=== PATIENT | female | born 1950 | race Caucasian/White ===

== ENCOUNTER → 2016-11-27 | Outpatient (REF) | payer MEDICARE, OTHER ==
[~2016-11-27] MED LIST: /ADVA50050; ACET65TA; ADV250INH INH; ALBU17IN INH; ALBU83IN; ALBU83IN INH; ASPI81TA21 PO; ASPI81TA83; AZIT200S30 PO; BIOT50004 PO; CALCTAB68 PO; DILT1TAB12 PO; DILT240C77 PO; LEVA500T; LEVA750T7 PO; LEVO750T13 PO; LIPI10TA; LIPI10TA PO; NYST50SS SS; PANT40TA2 PO; PRED10PA PO; PRED10TA PO; PRED20TA; PRIL40CA; PROV90AE; SALI0.6523; VITA200016 PO; VITMTA PO; XARE20TA PO; [UNRECOGNIZED DRUG - CODE] PO; [UNRECOGNIZED DRUG - OTHER]
== END ==
LOC: M LAB REF 12:32
PROVIDERS: ATTEND Family Medicine
DX: L57.0 Actinic keratosis (principal)

== ENCOUNTER → 2017-03-22 | Outpatient (CLI) | payer MEDICARE, OTHER | LOC: M WHC 07:44 | DX: Z12.31 Encounter for screening mammogram for malignant neoplasm of breast (principal); Z13.820 Encounter for screening for osteoporosis; M81.0 Age-related osteoporosis without current pathological fracture; R92.8 Other abnormal and inconclusive findings on diagnostic imaging of breast | CPT/HCPCS: 77067 ==

== ENCOUNTER → 2017-09-09 | Outpatient (CLI) | payer MEDICARE, OTHER | LOC: M CLY 08:54 | DX: J98.4 Other disorders of lung (principal) | CPT/HCPCS: 71046 ==

== ENCOUNTER → 2018-12-02 | Outpatient (CLI) | payer MEDICARE, OTHER ==
[~2018-12-02] MED LIST changes: -/ADVA50050; +ADVA1AER2; +DILT1CAP5 PO; -DILT240C77 PO; -PANT40TA2 PO; +PANT40TA3 PO; +PRED-351 PO; -PRED10TA PO; -SALI0.6523; +SALI0.6528
--- NOTE | 2018-12-02 08:25 | REPMRS ---
Patient History The patient states she has not had a clinical breast exam in over a year. No known family history of cancer. Benign excisional biopsy of the right breast, 1989. Digital Woman Screen Mammo: December 02, 2018 - Exam #: [id number] Bilateral CC and MLO view(s) were taken. Technologist: Zeenat Becerra, Technologist Prior study comparison: March 22, 2017, digital woman screen mammo performed at [facility]. October 27, 2015, digital woman screen mammo performed at [facility]. March 10, 2013, digital woman screen mammo performed at [facility]. FINDINGS: There are scattered fibroglandular densities. There has been no change in the appearance of the mammogram from the prior studies. There is a mild amount of scattered fibroglandular density which is fairly symmetric. There is no interval development of dominant mass, architectural distortion, or grouped microcalcification suggestive of malignancy. 3-D tomosynthesis shows no additional findings. Assessment: BI-RADS/ACR category 1 mammogram. Negative Mammogram. Recommendation Routine screening mammogram of both breasts in 1 year (for women over age 40). This patient's Lifetime Breast Cancer Risk is estimated at 4.3 %. This mammogram was interpreted with the aid of an FDA-approved computer-aided dectection system. Electronically Signed By: Jose Cobos MD 12/02/18 0824
== END ==
LOC: M WHC 06:49
PROVIDERS: ATTEND Family Medicine
DX: Z12.31 Encounter for screening mammogram for malignant neoplasm of breast (principal)

== ENCOUNTER → 2019-01-06 | Outpatient (CLI) | payer MEDICARE, OTHER ==
--- NOTE | 2019-01-06 12:09 | REP ---
Two-view chest: 01/06/2019. Indication: Dyspnea. Cough. Comparison: 09/09/2017. Findings: The lungs are clear. There is no pleural effusion or pneumothorax. The cardiac silhouette is unremarkable. Hyperinflated lungs are redemonstrated with leveling of the diaphragms consistent with the history of COPD. Impression: No acute cardiopulmonary process. Electronically Signed by Andrea Eastman DO 01/06/2019 12:01 P
== END ==
LOC: M CLY 11:27
PROVIDERS: ATTEND Internal Medicine Pulmonary Disease
DX: J44.9 Chronic obstructive pulmonary disease, unspecified (principal)

== ENCOUNTER → 2019-04-01 | Outpatient (CLI) | payer MEDICARE, OTHER ==
--- NOTE | 2019-04-01 14:30 | REP ---
PA and lateral chest: Comparison is 01/06/2019. The lung thompson are clear. Lung thompson are hyperinflated, unchanged. The cardiac size is normal. The jessi, mediastinum, and skeletal structures are unremarkable. Impression: Hyperinflation, otherwise, negative PA and lateral chest. There is no interval change. Electronically Signed by Bhaskar Strong MD 04/01/2019 02:22 P
== END ==
LOC: M CLY 13:57
PROVIDERS: ATTEND Internal Medicine Pulmonary Disease
DX: J44.9 Chronic obstructive pulmonary disease, unspecified (principal)

== ENCOUNTER → 2020-05-14 | Outpatient (CLI) | payer MEDICARE, OTHER ==
[~2020-05-14] MED LIST changes: +D31000TA2 PO; +INCR1INH INH; +PANT40TA29 PO; -PANT40TA3 PO; +PROAAER10 INH; +VITA100T59 PO
== END ==
LOC: M LABSMTC 08:20
PROVIDERS: ATTEND Anesthesiology
DX: Z01.818 Encounter for other preprocedural examination (principal); Z11.52 Encounter for screening for COVID-19

== ENCOUNTER 2020-05-19 07:37 | Day surgery (SDC) | payer MEDICARE, OTHER ==
[~2020-05-19] VITALS: Ht 170.2 cm; Wt 61.2 kg
[~2020-05-19 07:37] MED LIST changes: +LIDOCAINE 2% 100MG/5ML SDV (FOR ANES.) As Ordered ONE; +NS 1,000 ML IV ONE; +propofoL 200 MG/20 ML VIAL As Ordered ONE
[2020-05-19] MEDS ORDERED: propofoL 200 MG/20 ML VIAL As Ordered ONE (08:51)
--- NOTE | 2020-05-19 09:11 | ROOR ---
Patient Name: Juana Law Procedure Date: 05/19/2020 8:18 AM Date of : 1950 Age: 69 Room: [facility] Gender: Female Note Status: Finalized Procedure: Colonoscopy Indications: Screening for colorectal malignant neoplasm Providers: Eric Guadarrama Jr, MD Referring MD: David Quijano MD Requesting Provider: Medicines: Propofol per Anesthesia Complications: No immediate complications. Procedure: Pre-Anesthesia Assessment: - Prior to the procedure, a History and Physical was performed, and patient medications and allergies were reviewed. The patient is competent. The risks and benefits of the procedure and the sedation options and risks were discussed with the patient. All questions were answered and informed consent was obtained. Patient identification and proposed procedure were verified by the physician and the nurse in the pre-procedure area and in the procedure room. Mental Status Examination: alert and oriented. Airway Examination: normal oropharyngeal airway and neck mobility. Respiratory Examination: clear to auscultation. CV Examination: normal. ASA Grade Assessment: II - A patient with mild systemic disease. After reviewing the risks and benefits, the patient was deemed in satisfactory condition to undergo the procedure. The anesthesia plan was to use moderate sedation / analgesia (conscious sedation). Immediately prior to administration of medications, the patient was re-assessed for adequacy to receive sedatives. The heart rate, respiratory rate, oxygen saturations, blood pressure, adequacy of pulmonary ventilation, and response to care were monitored throughout the procedure. The physical status of the patient was re-assessed after the procedure. The Colonoscope was introduced through the anus and advanced to the cecum, identified by appendiceal orifice and ileocecal valve. The colonoscopy was performed without difficulty. The patient tolerated the procedure well. The quality of the bowel preparation was adequate. Findings: The rectum, recto-sigmoid colon, descending colon, transverse colon and hepatic flexure appeared normal. Many small and large-mouthed diverticula were found in the sigmoid colon and descending colon. A medium-sized polypoid lesion was found at the ileocecal valve. The lesion was semi-sessile. No bleeding was present. Biopsies were taken with a cold forceps for histology. Area was tattooed with an injection of 1 mL of Spot (carbon black). Impression: - The rectum, recto-sigmoid colon, descending colon, transverse colon and hepatic flexure are normal. - Diverticulosis in the sigmoid colon and in the descending colon. - Rule out malignancy, polypoid lesion at the ileocecal valve. Biopsied. Tattooed. Recommendation: - Discharge patient to home (ambulatory). - Return to my office in 1 week. Procedure Code(s): --- Professional --- 02694, Colonoscopy, flexible; with directed submucosal injection(s), any substance 53945, Colonoscopy, flexible; with biopsy, single or multiple Diagnosis Code(s): --- Professional --- Z12.11, Encounter for screening for malignant neoplasm of colon D49.0, Neoplasm of unspecified behavior of digestive system K57.30, Diverticulosis of large intestine without perforation or abscess without bleeding CPT copyright 2019 [employer]. All rights reserved. The codes documented in this report are preliminary and upon plugger man review may be revised to meet current compliance requirements. Eric Guadarrama MD Eric Guadarrama Jr, MD 05/19/2020 9:10:37 AM Electronically signed by Eric Guadarrama Jr, MD Number of Addenda: 0 Note Initiated On: 05/19/2020 8:18 AM Estimated Blood Loss: Estimated blood loss: none.
[2020-05-19 09:30] VITALS: BP 166/74
== END 2020-05-19 09:32 | disposition home or self-care (01) ==
LOC: M OPP 07:37
PROVIDERS: ATTEND Surgery
DX: Z12.11 Encounter for screening for malignant neoplasm of colon (principal); D12.0 Benign neoplasm of cecum; K57.30 Diverticulosis of large intestine without perforation or abscess without bleeding; Z79.899 Other long term (current) drug therapy; Z88.0 Allergy status to penicillin; Z88.8 Allergy status to other drugs, medicaments and biological substances

== ENCOUNTER 2020-06-28 10:45 | Inpatient (IN) | payer MEDICARE, OTHER ==
[~2020-06-28] VITALS: Ht 170.2 cm; Wt 63.9 kg
[~2020-06-28 10:45] MED LIST changes: -LIDOCAINE 2% 100MG/5ML SDV (FOR ANES.) As Ordered ONE; -NS 1,000 ML IV ONE; -propofoL 200 MG/20 ML VIAL As Ordered ONE
--- NOTE | 2020-07-11 12:57 | HPE ---
HISTORY AND PHYSICAL DATE OF ADMISSION: 07/12/2020 CHIEF COMPLAINT: Unresectable colon polyp. BRIEF HISTORY OF PRESENT ILLNESS: The patient is a 69-year-old female who presented for screening colonoscopy in April and presents with a sessile polyp near the ileocecal valve. This was an adenomatous polyp on biopsy. She has not had any GI complaints. No nausea. No vomiting. No diarrhea. No constipation issues. No blood per rectum. No family or personal history of colon polyps, colon cancer, ulcerative colitis or Crohn's disease. She presents now for resection of this polyp. PAST MEDICAL HISTORY: History of COPD, history of sleep apnea, history of skin cancer, history of atrial fibrillation, history of hypercholesterolemia, history of pulmonary emphysema, chronic rhinitis, bronchitis, sleep apnea. PHYSICAL EXAMINATION: GENERAL: This is a 69-year-old female who looks her stated age. HEENT: Unremarkable. NECK: Supple without adenopathy. LUNGS: A few crackles at the bases and diminished breath sounds. HEART: Regular with multiple irregular beats. ABDOMEN: Soft, nondistended and nontender. No guarding. No rebound. No peritoneal signs are appreciated. IMPRESSION AND PLAN: Patient has a right colon cancer/at the ileocecal valve. This was marked with carbon spot tattooing. Plan is for a laparoscopic right colectomy/hemicolectomy. The risks as well as benefits have been discussed with the patient at length, those including but not infection, bleeding, damage to surrounding structures as well as need for ostomy as well as anastomotic complications. Patient would like to proceed with operative intervention understanding that she will need a mechanical as well as antibiotic bowel prep preoperatively, receive IV antibiotics preoperatively, have TEDs sequentials fully placed intraoperatively and plan on hospitalization as an inpatient postoperatively and this will be typically at 2-3 hospital day admission, possibly longer given her COPD issues.
[2020-07-12] VITALS (9 sets, daily range): BP systolic 121–132; BP diastolic 58–67
[2020-07-12] MEDS ORDERED: LR 1,000 ML IV ONE (06:00)
[2020-07-12] MEDS ORDERED: BUPIVACAINE/EPIN 0.25% 30 ML VIAL As Ordered ONE (07:09)
[2020-07-12] MEDS ORDERED: GLUCAGON INJ 1MG VIAL As Ordered ONE (07:10)
[2020-07-12] MEDS ORDERED: BUPIVACAINE LIPOSOME/PF 1.3% 20ML VIAL (13.3MG/ML)(EXPAREL)(C9290 PER1MG) As Ordered ONE ×2 (07:10→08:39)
[2020-07-12] MEDS ORDERED: ROCURONIUM BROMIDE 50 MG/5 ML VIAL As Ordered ONE (07:17)
[2020-07-12] MEDS ORDERED: dexameTHASONE 4 MG/ML 1ML VIAL (J1100 PER 1MG) As Ordered ONE (07:17)
[2020-07-12] MEDS ORDERED: ACETAMINOPHEN 1000MG 100ML IV BTL (OFIRMEV) (J0131 PER 10MG) As Ordered ONE (07:17)
[2020-07-12] MEDS ORDERED: LIDOCAINE 2% 100MG/5ML SDV (FOR ANES.) As Ordered ONE (07:17)
[2020-07-12] MEDS ORDERED: ONDANSETRON 4MG/2ML VIAL As Ordered ONE (07:17)
[2020-07-12] MEDS ORDERED: MIDAZOLAM INJ 2MG/2ML VIAL (J2250 PER 1MG) As Ordered ONE (07:17)
[2020-07-12] MEDS ORDERED: propofoL 200 MG/20 ML VIAL As Ordered ONE (07:17)
[2020-07-12] MEDS ORDERED: NEOM500T PO (07:18)
[2020-07-12] MEDS ORDERED: METR-135 PO (07:18)
[2020-07-12] MEDS ORDERED: fentaNYL 100 MCG/2 ML INJECTION (J3010) As Ordered ONE (07:21)
[2020-07-12] MEDS ORDERED: AZITHROMYCIN INJ 500 MG, VIAL MATE ADAPTER 1 EACH in NS 250 ML IV ONE ×2 (07:45→07:48)
[2020-07-12] MEDS ORDERED: NS IV ONE (07:46)
[2020-07-12] MEDS ORDERED: AZITHROMYCIN IV ONE (07:46)
[2020-07-12] MEDS ORDERED: PHENYLephrine 500MCG 5ML (100MCG/ML) SYRINGE As Ordered ONE ×2 (08:05→08:30)
[2020-07-12] MEDS ORDERED: ePHEDrine SULFATE 25 MG/5 ML(5MG/ML) SYRINGE As Ordered ONE ×2 (08:30→08:50)
[2020-07-12] MEDS ORDERED: BUPIVACAINE HCL 0.25% 30ML VIAL As Ordered ONE (08:38)
[2020-07-12] MEDS ORDERED: PHENYLEPHRINE 10MG/ML 1ML VIAL (J2370 PER 1) As Ordered ONE (08:52)
[2020-07-12] MEDS ORDERED: ONDANSETRON 4MG/2ML VIAL IV PRN ×2 (09:45→10:25)
[2020-07-12] MEDS ORDERED: IPRATROPIUM 0.5MG/ALBUTEROL 2.5MG INH SOL UD 3ML (DUONEB) NEB PRN (09:45)
[2020-07-12] MEDS ORDERED: MORPHINE 2 MG/ML 1ML VIAL (J2270) IV PRN (09:45)
[2020-07-12] MEDS ORDERED: MORPHINE 4 MG/ML 1ML VIAL/SYRINGE (J2270) IV PRN (09:45)
[2020-07-12] MEDS ORDERED: oxyCODONE 5MG TAB PO PRN (10:25)
[2020-07-12] MEDS ORDERED: LR 1,000 ML IV SCH (10:25)
[2020-07-12] MEDS ORDERED: KETOROLAC 30 MG/ML 1ML VIAL IV PRN (10:25)
[2020-07-12] MEDS ORDERED: fentaNYL 100 MCG/2 ML INJECTION (J3010) IV PRN (10:25)
[2020-07-12] MEDS: D5W/LR 1,000 ML IV SCH ×2 (12:01→19:34)
[2020-07-12] MEDS: ATORVASTATIN 10 MG TAB PO SCH (12:03)
[2020-07-12] MEDS: KETOROLAC 30 MG/ML 1ML VIAL IV SCH ×2 (18:14→23:20)
[2020-07-12] MEDS: ADVAIR HFA 115/21MCG INHALER INH SCH (19:14)
[2020-07-12] MEDS: IPRATROPIUM 0.5MG/ALBUTEROL 2.5MG INH SOL UD 3ML (DUONEB) NEB SCH (19:16)
[2020-07-12] MEDS: ALVIMOPAN 12 MG CAPSULE (ENTEREG) PO SCH (20:18)
[2020-07-13] VITALS (9 sets, daily range): BP systolic 101–137; BP diastolic 49–64; O2SAT 90–97
[2020-07-13] MEDS: IPRATROPIUM 0.5MG/ALBUTEROL 2.5MG INH SOL UD 3ML (DUONEB) NEB SCH ×4 (01:04→19:47)
[2020-07-13] MEDS: D5W/LR 1,000 ML IV SCH ×3 (03:28→20:41)
[2020-07-13] MEDS: KETOROLAC 30 MG/ML 1ML VIAL IV SCH ×4 (05:16→23:17)
[2020-07-13 06:03] LABS: HEMATOCRIT 38.4 % (36.0-47.0); HEMOGLOBIN 11.8 g/dl (12.0-15.5); MEAN CORPUSCULAR HEMOGLOBIN 29.8 pg (27.0-33.0); MEAN CORPUSCULAR HGB CONC 30.7 g/dl (32.0-36.5); PLATELET COUNT, AUTOMATED 209 10^3/uL (150-450); RED BLOOD COUNT 3.96 10^6/uL (4.00-5.40); WHITE BLOOD COUNT 12.5 10^3/uL (4.0-10.0)
--- NOTE | 2020-07-13 06:14 | RO ---
OPERATIVE NOTE DATE OF OPERATION: 07/12/2020 PREOPERATIVE DIAGNOSIS: Colon polyp/right colon. POSTOPERATIVE DIAGNOSIS: Colon polyp/right colon PROCEDURE: Laparoscopic right colectomy. SURGEON: Eric Guadarrama MD DIRECTOR OF SPORTS MEDICINE: Katt Batista (provided the retraction exposure, assistance with the anastomosis and abdominal wall closure. ESTIMATED BLOOD LOSS: Minimal. FLUIDS: Crystalloid. ANESTHESIA: General endotracheal anesthesia. DISPOSITION: The patient was taken to the recovery room, awake, alert and hemodynamically stable. BRIEF OPERATIVE SUMMARY: The patient was taken to the operating room and was given general anesthesia. After adequate anesthesia and preoperative antibiotics were given, the patient was prepped and draped in the usual sterile fashion. Next, a supraumbilical incision was made with skin knife. Blunt dissection was carried down to fascia. A Veress needle was placed into the abdominal cavity, insufflated to 15 mm of pressure. Dilating 10 mm trocar was placed; and under direct visualization, 5 mm suprapubic, 5 mm left lower quadrant and epigastric 5 mm trocars were placed. Once this was performed, the patient was placed with the left side down, Trendelenburg position, then the white line of Toldt was taken down off the right side of the colon. The patient did have an appendectomy incision, did have some adhesions of the cecum and it was angling the cecum in such a manner that may have contributed to difficulty in removal of the right colon polyp. In any case, the white line of Toldt was taken down and the colon was mobilized off Gerota's fascia laterally and down towards the ileum/small bowel, mesentery was mobilized off the right lateral wall. There are some adhesions down in the right lower quadrant, but nothing significant or severe and dissection continued up and around the hepatic flexure to the transverse colon. Once the transverse colon was mobilized and the hepatic flexure was mobilized off the duodenum/C-loop, the continuation of the dissection continued on the right colon all the way to the cecum and the ileocecal valve area. Once this was identified and mobilized adequately, such that the cecum was able to touch the pubis, the cecum was grasped and brought out through a midline incision. A [id number] anastomosis was created; and with CHRISTA 75 staplers, the mesentery was taken with Wenden 60 vascular loads. The abdomen was irrigated, was clean and dry and the midline then was closed with running #1 Vicryl. Armstrong were used to approximate the skin. Local anesthetic was injected and a dry sterile dressing applied. The patient was awakened, extubated and brought to the recovery room, awake, alert and hemodynamically stable. Sponge and needle counts correct x2.
[2020-07-13 06:31] LABS: BLOOD UREA NITROGEN 5 MG/DL (7-18); CALCIUM LEVEL 8.9 MG/DL (8.8-10.2); CARBON DIOXIDE LEVEL 31 MEQ/L (21-32); CHLORIDE LEVEL 110 MEQ/L (98-107); CREATININE FOR GFR 0.72 MG/DL (0.55-1.30); GLOMERULAR FILTRATION RATE > 60.0 (>39); GLUCOSE, FASTING 149 MG/DL (70-100); POTASSIUM SERUM 4.8 MEQ/L (3.5-5.1); SODIUM LEVEL 143 MEQ/L (136-145)
[2020-07-13] MEDS: ADVAIR HFA 115/21MCG INHALER INH SCH ×2 (07:34→19:47)
[2020-07-13] MEDS ORDERED: AZITHROMYCIN INJ 500 MG, VIAL MATE ADAPTER 1 EACH in NS 250 ML IV ONE (08:00)
[2020-07-13] MEDS: ALVIMOPAN 12 MG CAPSULE (ENTEREG) PO SCH ×2 (09:36→23:16)
--- NOTE | 2020-07-13 11:28 | IPNPDOC ---
Text Note Date of Service The patient was seen on 07/13/20. NOTE Gen. surgery. Dr. Guadarrama The patient is a 69-year-old female status post Laparoscopic right colectomy as per Dr. Guadarrama 07/12/20. The patient is sitting up in bed this morning and states she is feeling good. She denies any abdominal pain. Denies nausea or vomiting. Reports a small amount of flatus this morning Afebrile. VSS Gen. Sitting up in bed, NAD Lungs are clear to auscultation S1 and S2 regular rate and rhythm Abdomen is soft, nondistended, only minimal amount of tenderness around surgical sites. Incisions with dressings intact. No edema. WBC 12.5, hemoglobin 11.8, platelets 209 Assessment/plan Status post right colectomy as per Dr. Guadarrama 07/12/20. Pain has been controlled. Report small amount of flatus this morning. Plan to try clear liquids. IVF 125cc/hr. DC García. Encourage out of bed and ambulate in arteaga. monitor VS,Jazminee, I+O VS, Lemuelbone, I+O Laboratory Tests 07/13/20 05:51 Vital Signs Date Time Temp Pulse Resp B/P (MAP) Pulse Ox O2 Delivery O2 Flow Rate FiO2 07/13/20 10:00 98.5 60 20 120/57 (78) 93 Nasal Cannula 2.0 I&O- Last 24 Hours up to 6 AM 07/13/20 06:00 Intake Total 3300 ml Output Total 2175 ml Balance 1125 ml Cheli Castro July 13, 2020 11:28
[2020-07-14] MEDS: IPRATROPIUM 0.5MG/ALBUTEROL 2.5MG INH SOL UD 3ML (DUONEB) NEB SCH ×4 (01:43→19:28)
[2020-07-14 02:00] VITALS: BP 127/59
[2020-07-14] MEDS: D5W/LR 1,000 ML IV SCH ×2 (04:53→08:31)
[2020-07-14] MEDS: KETOROLAC 30 MG/ML 1ML VIAL IV SCH ×2 (05:00→11:06)
[2020-07-14 06:00] VITALS: BP 143/70
[2020-07-14 06:18] LABS: HEMATOCRIT 36.1 % (36.0-47.0); HEMOGLOBIN 10.8 g/dl (12.0-15.5); MEAN CORPUSCULAR HEMOGLOBIN 29.6 pg (27.0-33.0); MEAN CORPUSCULAR HGB CONC 29.9 g/dl (32.0-36.5); MEAN CORPUSCULAR VOLUME 98.9 fl (80.0-96.0); PLATELET COUNT, AUTOMATED 187 10^3/uL (150-450); RED BLOOD COUNT 3.65 10^6/uL (4.00-5.40); WHITE BLOOD COUNT 12.6 10^3/uL (4.0-10.0)
[2020-07-14 06:43] LABS: BLOOD UREA NITROGEN 5 MG/DL (7-18); CALCIUM LEVEL 8.4 MG/DL (8.8-10.2); CARBON DIOXIDE LEVEL 31 MEQ/L (21-32); CHLORIDE LEVEL 112 MEQ/L (98-107); CREATININE FOR GFR 0.57 MG/DL (0.55-1.30); GLOMERULAR FILTRATION RATE > 60.0 (>39); GLUCOSE, FASTING 100 MG/DL (70-100); POTASSIUM SERUM 4.6 MEQ/L (3.5-5.1); SODIUM LEVEL 146 MEQ/L (136-145)
[2020-07-14] MEDS: ADVAIR HFA 115/21MCG INHALER INH SCH ×2 (07:22→19:29)
[2020-07-14] MEDS: ALVIMOPAN 12 MG CAPSULE (ENTEREG) PO SCH (08:24)
[2020-07-14] MEDS: ATORVASTATIN 10 MG TAB PO SCH (08:25)
[2020-07-14 10:00] VITALS: BP 137/64
--- NOTE | 2020-07-14 11:15 | IPNPDOC ---
Text Note Date of Service The patient was seen on 07/14/20. NOTE Gen. surgery. Dr. Guadarrama The patient is a 69-year-old female status post Laparoscopic right colectomy as per Dr. Guadarrama 07/12/20. The patient is sitting up in bed this morning and states pain is controlled. She denies any abdominal pain. Denies nausea or vomiting. Reports flatus. States she has had several bowel movements. At 4:40 AM and 6 AM she had juanita colored stool, At 8 AM black-colored stool. No further bowel movements according to the patient. No bright red blood. Afebrile. VSS Gen. Sitting up in bed, NAD Lungs are clear to auscultation S1 and S2 regular rate and rhythm Abdomen is soft, nondistended, only minimal amount of tenderness around surgical sites. Incisions with dressings intact. No edema. WBC 12.6, hemoglobin 10.8, platelets 187 I/O 2640/1900 positive 740 Assessment/plan Status post right colectomy as per Dr. Guadarrama 07/12/20. Pain has been controlled. The patient is tolerating clear liquids. Discontinue IV fluids. Discussed with Dr. Guadarrama that the patient did have juanita stools early this morning, last bowel movement at 8 AM was black in color. Possibly some oozing from anastomosis suture line. The patient is on Xarelto as outpatient for history of A. fib. Continue to monitor. Hemoglobin this morning 10.8. Encourage out of bed and ambulate in arteaga. monitor History of PAF. Rate is controlled and regular. Cardizem 120 mg by mouth 3 times a day. Xarelto as outpatient. Currently on hold. VS,Fishbone, I+O VS, Fishbone, I+O Laboratory Tests 07/14/20 06:02 Vital Signs Date Time Temp Pulse Resp B/P (MAP) Pulse Ox O2 Delivery O2 Flow Rate FiO2 07/14/20 10:00 97.7 79 20 137/64 (88) 95 Nasal Cannula 2.0 I&O- Last 24 Hours up to 6 AM 07/14/20 06:00 Intake Total 2640 ml Output Total 2050 ml Balance 590 ml Cheli Castro July 14, 2020 11:15
[2020-07-14 14:00] VITALS: BP 142/65
[2020-07-14 18:00] VITALS: BP 140/68
[2020-07-14 20:30] VITALS: BP 120/64
[2020-07-15] MEDS: IPRATROPIUM 0.5MG/ALBUTEROL 2.5MG INH SOL UD 3ML (DUONEB) NEB SCH ×3 (01:00→13:06)
[2020-07-15 06:40] VITALS: BP 128/66
[2020-07-15] MEDS: ADVAIR HFA 115/21MCG INHALER INH SCH (07:33)
[2020-07-15 07:44] LABS: HEMATOCRIT 40.1 % (36.0-47.0); HEMOGLOBIN 12.3 g/dl (12.0-15.5); MEAN CORPUSCULAR HEMOGLOBIN 29.9 pg (27.0-33.0); MEAN CORPUSCULAR HGB CONC 30.7 g/dl (32.0-36.5); MEAN CORPUSCULAR VOLUME 97.6 fl (80.0-96.0); PLATELET COUNT, AUTOMATED 216 10^3/uL (150-450); RED BLOOD COUNT 4.11 10^6/uL (4.00-5.40); WHITE BLOOD COUNT 12.1 10^3/uL (4.0-10.0)
[2020-07-15 08:04] LABS: BLOOD UREA NITROGEN 7 MG/DL (7-18); CARBON DIOXIDE LEVEL 33 MEQ/L (21-32); CHLORIDE LEVEL 105 MEQ/L (98-107); CREATININE FOR GFR 0.68 MG/DL (0.55-1.30); GLOMERULAR FILTRATION RATE > 60.0 (>39); GLUCOSE, FASTING 80 MG/DL (70-100); POTASSIUM SERUM 3.7 MEQ/L (3.5-5.1); SODIUM LEVEL 143 MEQ/L (136-145)
[2020-07-15 09:02] VITALS: BP 143/67
--- NOTE | 2020-07-15 10:57 | DS.PDOC ---
Discharge Summary General Date of Admission July 12, 2020 at 05:59 Date of Discharge 07/15/20 Discharge Summary Gen. surgery. Dr. Guadarrama PROCEDURES PERFORMED DURING STAY: Laparoscopic right colectomy as per Dr. Guadarrama 07/12/20. ADMITTING DIAGNOSES: Right colon cancer/at the ileocecal valve previously marked with carbon spot tattooing with plan for laparoscopic right colectomy. PAF Dyslipidemia Essential tremor COPD, patient states she uses oxygen as needed at home DISCHARGE DIAGNOSES: Right colon cancer/at the ileocecal valve previously marked with carbon spot tattooing S/P laparoscopic right colectomy. PAF Dyslipidemia Essential tremor COPD, patient states she uses oxygen as needed at home HISTORY OF PRESENT ILLNESS: The patient is a 69-year-old female who had a screening colonoscopy in April with cecal polyp removed with pathology tubovillous adenoma. The area was tattooed and plan was to proceed with laparoscopic right colectomy. HOSPITAL COURSE: The patient is status post laparoscopic right colectomy 07/12/[address] Guadarrama. Postoperatively the patient recovered well. Pain was well controlled. All incisions remained clean and dry. By 07/13/20 the patient was reporting a small amount of flatus and she was advanced to clear liquids. By 07/14/20 the patient was tolerating clear liquids. IV fluids were discontinued. The patient had reported juanita stools early in the morning which transitioned to black/bilious bowel movements. The patient had no further juanita stools and had no bright red blood. This was felt to be related to possibly some oozing at the anastomosis suture line. The patient is noted to be on Xarelto as an outpatient. Hemoglobin remained stable. The patient was advanced to regular diet which she tolerated well. On the morning of 07/15/20 the patient was up out of bed, she was continuing to have bowel movements, pain was well controlled, incisions were all clean and dry. She was felt stable for discharge. She was noted to still still be on 2 L nasal cannula however the patient does have a history of COPD and uses oxygen as needed at home. She reports her respiratory status is at her baseline. She has been afebrile. White blood cell count is12.1 this morning, this has been consistently 12.1-12.6 since admission. Currently, there are no signs of infection. Respiratory status is at the patient's baseline. She reports no urinary complaints. No abdominal pain. She has been afebrile. The patient is not felt to require antibiotics at this t elissa but we have discussed with her to call back to the office with any changes in symptoms, drainage from incisions or development of fevers or chills. The patient verbalizes understanding and agreement. Plan is to arrange for the patient to follow-up next Saturday or in the office for staple removal and in [address] Guadarrama. Pathology 05/12/20 indicated tubovillous adenoma 2.5 cm, negative for invasive carcinoma. DISCHARGE MEDICATIONS: Please see below. ALLERGIES: Please see below. PHYSICAL EXAMINATION ON DISCHARGE: Afebrile. VSS Gen. Sitting up in bed, NAD Lungs are clear to auscultation S1 and S2 regular rate and rhythm Abdomen is soft, nondistended, only minimal amount of tenderness around surgical sites. Incisions clean and dry with makayla intact, no erythema, drainage, signs of infection. No edema. LABORATORY DATA: Please see below. DISCHARGE PLAN: Discharge home DISCHARGE INSTRUCTIONS: ACTIVITY: As tolerated. No lifting greater than 20 pounds for 2 weeks. DIET: Regular Continue to keep incisions clean and dry. Okay to shower, no baths. Follow-up next Saturday or in the office for possible staple removal. Follow-up in [address] Guadarrama. The patient may resume Xarelto at discharge. Call the office with any changes or questions, increasing pain, drainage from incisions, or development of fevers or chills. DISCHARGE CONDITION: Stable. TIME SPENT ON DISCHARGE: Greater than 30 minutes. Vital Signs/I&Os Vital Signs Date Time Temp Pulse Resp B/P (MAP) Pulse Ox O2 Delivery O2 Flow Rate FiO2 07/15/20 09:02 96 143/67 07/15/20 06:40 96.8 18 93 Nasal Cannula 2.0 I&O- Last 24 Hours up to 6 AM 07/15/20 06:00 Intake Total 2540 ml Output Total 3300 ml Balance -760 ml Laboratory Data Labs 24H Laboratory Tests 2 07/15/20 07:03: Nucleated Red Blood Cells % (auto) 0.0, Anion Gap 5L, Glomerular Filtration Rate > 60.0, Calcium Level 9.0 CBC/BMP Laboratory Tests 07/15/20 07:03 Discharge Medications Scheduled Albuterol Sulfate (Proair Hfa) 8.5 Gm Hfa.aer.ad, 2 PUFF INH PRN, (Reported) Ascorbic Acid (Vitamin C) 100 Mg Tablet, 120 MG PO DAILY, (Reported) Atorvastatin Calcium (Lipitor) 10 Mg Tab, 10 MG PO Q2D, (Reported) Cholecalciferol (Vitamin D3) (Vitamin D3) 1,000 Unit Tablet, 2,000 UNITS PO DAILY, (Reported) Diltiazem HCl (Diltiazem HCl) 60 Mg Tab, 120 MG PO TID, (Reported) Multivitamins (Thera M Plus Tablet) 1 Tab Tab, 1 TAB PO DAILY, (Reported) Rivaroxaban (Xarelto) 20 Mg Tab, 20 MG PO DAILY, (Reported) Salmeterol/Fluticasone (Advair 250-50 Diskus) 14 Puff/Inhaler Aerp, 1 PUFF INH BID, (Reported) Umeclidinium [place] (Incruse Ellipta) 62.5 Mcg Blst.w.dev, 1 PUFF INH DAILY, (Reported) Scheduled PRN Albuterol Sulf (Albuterol Sulfate) 2.5 Mg/3 Ml Nebu, 2.5 MG INH QIDP PRN for RESPIRATORY DISTRESS, (Reported) Allergies Coded Allergies: Penicillins (Verified Allergy, Intermediate, hives, 05/09/20) cefaclor (Verified Allergy, Intermediate, hives, 05/09/20) sulfamethoxazole (Verified Allergy, Intermediate, hives, 05/09/20) trimethoprim (Verified Allergy, Intermediate, hives, 05/09/20) levofloxacin (Verified Adverse Reaction, Intermediate, tendon pains, 05/18/20) Cheli Castro July 15, 2020 10:57
[2020-07-15 14:00] VITALS: BP 120/60
== END 2020-07-15 14:56 | disposition home or self-care (01) | DRG 331 ==
LOC: M OR 07-12 05:59 → M MSPAV 07-12 11:29
PROVIDERS: ADMIT Surgery; ATTEND Surgery
PROC: 0DTF4ZZ Resection of Right Large Intestine, Percutaneous Endoscopic Approach (ICD-10-PCS; principal; 2020-07-12 07:30)
DX: D12.0 Benign neoplasm of cecum (principal); J44.9 Chronic obstructive pulmonary disease, unspecified; G47.30 Sleep apnea, unspecified; E78.00 Pure hypercholesterolemia, unspecified; I48.0 Paroxysmal atrial fibrillation; Z79.01 Long term (current) use of anticoagulants; Z79.899 Other long term (current) drug therapy; Z88.0 Allergy status to penicillin; Z88.1 Allergy status to other antibiotic agents; Z88.2 Allergy status to sulfonamides; Z88.8 Allergy status to other drugs, medicaments and biological substances

== ENCOUNTER → 2020-06-29 | Outpatient (REF) | payer MEDICARE, OTHER ==
[2020-06-29 17:18] LABS: INR 1.2; PROTHROMBIN TIME 15.5 SECONDS (12.5-14.3)
[2020-06-29 17:19] LABS: PARTIAL THROMBOPLASTIN TIME 29.9 SECONDS (24.2-38.5)
== END ==
LOC: M LAB REF 16:13
PROVIDERS: ATTEND Family Medicine
DX: Z01.818 Encounter for other preprocedural examination (principal); K63.5 Polyp of colon; Z79.01 Long term (current) use of anticoagulants

== ENCOUNTER → 2020-07-07 | Outpatient (CLI) | payer MEDICARE, OTHER | LOC: M LABSMTC 09:37 | PROVIDERS: ATTEND Anesthesiology | DX: Z01.818 Encounter for other preprocedural examination (principal); Z20.822 Contact with and (suspected) exposure to COVID-19 ==

== ENCOUNTER 2020-07-17 04:59 | Inpatient (IN) | payer MEDICARE, OTHER ==
[~2020-07-17] VITALS: Ht 170.2 cm; Wt 59.1 kg
[~2020-07-17 04:59] MED LIST changes: +METR-135 PO; +NEOM500T PO
[2020-07-17] MEDS ORDERED: AZTREONAM 1 GM in D5W MINI-BAG PLUS 50 ML IV STA (05:20)
[2020-07-17] MEDS ORDERED: NS IV ONE (05:20)
[2020-07-17] MEDS ORDERED: VANCOMYCIN HCL 1,000 MG in IV FLUID PLACE HOLDER 1 EA IV ONE (05:20)
[2020-07-17] MEDS ORDERED: metroNIDAZOLE 500 MG in IV 1 EA IV ONE (05:20)
[2020-07-17] MEDS ORDERED: methylPREDNISolone 125MG 2ML VIAL IV ONE (05:30)
[2020-07-17 05:56] LABS: BASO % 0.1 % (0.0-1.0); EOS # 0.1 10^3/uL (0.0-0.5); EOS % 0.4 % (0.0-3.0); HEMATOCRIT 39.5 % (36.0-47.0); HEMOGLOBIN 12.3 g/dl (12.0-15.5); LYMPH # 0.9 10^3/uL (1.5-5.0); LYMPH % 5.7 % (24.0-44.0); MEAN CORPUSCULAR HEMOGLOBIN 29.6 pg (27.0-33.0); MEAN CORPUSCULAR HGB CONC 31.1 g/dl (32.0-36.5); MEAN CORPUSCULAR VOLUME 95.2 fl (80.0-96.0); NEUTROPHILS # 14.2 10^3/uL (1.5-8.5); NEUTROPHILS % 87.4 % (36.0-66.0); PLATELET COUNT, AUTOMATED 242 10^3/uL (150-450); RED BLOOD COUNT 4.15 10^6/uL (4.00-5.40); WHITE BLOOD COUNT 16.3 10^3/uL (4.0-10.0)
[2020-07-17 06:24] LABS: ALBUMIN 3.1 GM/DL (3.2-5.2); ALT/SGPT 55 U/L (12-78); AMYLASE 31 U/L (25-115); BILIRUBIN,DIRECT 0.2 MG/DL (0.0-0.2); BILIRUBIN,TOTAL 0.7 MG/DL (0.2-1.0); BLOOD UREA NITROGEN 15 MG/DL (7-18); CALCIUM LEVEL 8.1 MG/DL (8.8-10.2); CARBON DIOXIDE LEVEL 27 MEQ/L (21-32); CHLORIDE LEVEL 106 MEQ/L (98-107); CK-MB VALUE MASS < 1.0 NG/ML (<3.6); CPK CREATINE PHOSPHOKINASE 54 U/L (26-192); CREATININE FOR GFR 0.75 MG/DL (0.55-1.30); GLOMERULAR FILTRATION RATE > 60.0 (>39); GLUCOSE, FASTING 119 MG/DL (70-100); MB/CK RELATIVE INDEX 1.85 (< OR =4); POTASSIUM SERUM 3.7 MEQ/L (3.5-5.1); SODIUM LEVEL 140 MEQ/L (136-145); TOTAL PROTEIN 6.5 GM/DL (6.4-8.2); TROPONIN I < 0.02 NG/ML (< 0.10)
[2020-07-17 06:27] LABS: RSV AMPLIFICATION NEGATIVE (NEGATIVE)
[2020-07-17 06:46] LABS: INR 1.65; PARTIAL THROMBOPLASTIN TIME 27.5 SECONDS (24.2-38.5); PROTHROMBIN TIME 19.9 SECONDS (12.5-14.3)
[2020-07-17] MEDS ORDERED: VANCOMYCIN HCL 1,000 MG, VIAL MATE ADAPTER 1 EACH in NS 250 ML IV ONE (07:00)
[2020-07-17] MEDS ORDERED: ISOVUE-370 76% 100ML VIAL As Ordered ONE (07:05)
--- NOTE | 2020-07-17 07:54 | ECGEPIP ---
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
[2020-07-17] MEDS: ADVAIR HFA 115/21MCG INHALER INH SCH ×2 (08:00→19:47)
--- NOTE | 2020-07-17 08:27 | REP ---
INDICATION: rectal bleeding. COMPARISON: Comparison is made with chest CT images from 22 March 2015.. TECHNIQUE: Helical scanning is acquired following the intravenous injection of 100 mL of Isovue 370. 3 mm axial images re-formatted. Coronal and sagittal MPR images are generated and reviewed. Max coronal MIP images are provided. FINDINGS: Digital preliminary woodworking machinist radiographs demonstrate surgical clips scattered in the abdomen with multiple large and small bowel air-fluid levels seen. The lung bases demonstrated a fairly large area of consolidation in the right lower lobe consistent with pneumonia. There is no evidence of pleural effusion. There is mild diffuse fatty infiltration of the liver and there are geographic areas of fat sparing in the right lobe of the liver anteriorly and laterally. No hepatic mass lesion is seen. The gallbladder is unremarkable. There is a stable cyst in the superolateral margin of the spleen measuring 1.9 cm. No adrenal abnormality is observed. No abnormality is noted in the pancreas. Kidneys enhance symmetrically and are morphologically intact. There is moderate left colonic diverticulosis without CT evidence of diverticulitis. There is an anastomotic suture line in the right colon suggesting previous right colectomy. Small and large bowel loops are otherwise unremarkable. No obstructive lesion is seen. Uterus is surgically absent. No adnexal abnormality is observed. No retroperitoneal mass or adenopathy is seen. There is good opacification of the arterial tree. Vascular calcification is observed in a normal caliber aorta. There is calcific plaquing at the origin of both the superior mesenteric and celiac axis but no high-grade stenosis is suspected. Singular nonstenotic renal arteries are observed bilaterally. The inferior mesenteric artery is patent. The common iliac arteries are heavily calcified but patent. The external and internal iliac arteries are widely patent. No bony destructive lesion is seen. IMPRESSION: 1. Left colonic diverticulosis without CT evidence of diverticulitis. No colonic mass lesion is seen. Post right colon resection. 2. Moderate multifocal vascular calcification. No high-grade stenosis or visceral artery occlusion seen. 3. Fatty infiltration of the liver with areas of fat sparing in the right lobe. 4. Right lower lobe consolidation consistent with pneumonia. <Electronically signed by Jose Cobos > 07/17/20 0936
--- NOTE | 2020-07-17 08:55 | REPVR ---
PROCEDURE INFORMATION: Exam: XR Chest Exam date and time: 07/17/2020 6:11 AM Age: 69 years old Clinical indication: Shortness of breath; Additional info: Sepsis/shock TECHNIQUE: Imaging protocol: XR of the chest. Views: 1 view. COMPARISON: CR CHEST 2 VIEW 09/09/2017 9:01 AM FINDINGS: Lungs: The lungs are again hyperinflated. There is minor streaky bibasilar atelectasis. No new consolidation. Pleural spaces: Unremarkable. No pleural effusion. No pneumothorax. Heart/Mediastinum: The cardiomediastinal silhouette is fairly stable in appearance, allowing for differences in technique. Bones/joints: Unremarkable. IMPRESSION: Hyperinflation, as on 09/09/17, without new disease. Electronically signed by: Beny Mckinley On 07/17/2020 08:55:42 AM
--- NOTE | 2020-07-17 08:59 | REPVR ---
PROCEDURE INFORMATION: Exam: XR Abdomen Exam date and time: 07/17/2020 6:11 AM Age: 69 years old Clinical indication: Other: Examine gas pattern TECHNIQUE: Imaging protocol: XR of the abdomen. Views: 2 Views. Cross-table lateral and supine views. COMPARISON: No relevant prior studies available. FINDINGS: Tubes, catheters and devices: Surgical clips and sutures overlie the right lower quadrant. Gastrointestinal tract: The small bowel is not significantly air-distended. Air and stool are present within large bowel. Intraperitoneal space: No free air is evident. Bones/joints: Degenerative changes involve the spine. Soft tissues: There are multiple skin makayla. IMPRESSION: Nonspecific bowel gas pattern. Electronically signed by: Beny Mckinley On 07/17/2020 08:58:35 AM
[2020-07-17] MEDS ORDERED: ACETAMINOPHEN TAB 650MG DOSE (2X325MG) PO PRN (10:05)
[2020-07-17] MEDS ORDERED: VANCOMYCIN HCL 1,000 MG, VIAL MATE ADAPTER 1 EACH in NS 250 ML IV SCH (10:05)
[2020-07-17] MEDS ORDERED: ALBUTEROL 90 MCG/ACT 8GM HFA INHALER INH PRN (10:05)
[2020-07-17] MEDS ORDERED: ALBUTEROL SULFATE 2.5 MG/0.5 ML INH NEB SOLN INH PRN (10:05)
[2020-07-17 13:00] VITALS: BP 128/69
[2020-07-17] MEDS: VITAMIN D 1,000 INTERNATIONAL UNITS TABLET PO SCH (13:52)
[2020-07-17] MEDS: MULTIVITAMINS/MINERALS THERAP 1 TAB PO SCH (13:52)
[2020-07-17] MEDS: ATORVASTATIN 10 MG TAB PO SCH (13:52)
[2020-07-17] MEDS: metroNIDAZOLE 500 MG in IV 1 EA IV SCH ×2 (13:53→18:47)
[2020-07-17 14:00] VITALS: BP 111/73
[2020-07-17] MEDS: TIOTROPIUM INHALER/CAPSULE (SPIRIVA) INH SCH (14:01)
--- NOTE | 2020-07-17 15:13 | HPEPDOC ---
[facility] Medical History & Physical Date of Admission July 17, 2020 Date of Service: July 17, 2020 Attending Physician: NEREYDA CESPEDES MD History and Physical CHIEF COMPLAINT: productive cough and fever, and then had BRBPR in the ED HISTORY OF PRESENT ILLNESS: 69 yo W with COPD on chronic oxygen therapy at [facility], who recently underwent a lap R colectomy for a benign sessile polyp in the ileocecal valve found of routine colonoscopy, and surgery was on 07/[address] Guadarrama and was dischar ge home without any complications, who now returned to the ED with a worsening productive cough and yamel fever to 102.4 at home. Of note, she has a history of Afib on xarelto that was held since 07/08 and was recently restarted yesterday evening per surgeon's direction. Since hospital discharge, she reports that she had been doing well, stool had slowly turned brown and was formed without abdominal pain and was tolerating a regular diet. She reports first noting the fever yesterday but the cough had been slight and nonproductive at discharge and then slowly got worse while she was home. She otherwise did not have chills, chest pain, nausea, emesis, abdominal pain, palpitations or sick contacts. In the ED, she was hemodynamically stable and afebrile and had noted bloody bowel movement which she reports to be the first time she has ever had one, i/s/o restarting xarelto last night. Investigations were notable for leukocytosis to 16.3, CRP of 1.9, hgb 12.3, platelets 242, na 140, K 3.7, Cr 0.7, CXR that was unremarkable, AXR that showed a non-specific bowel gas pattern and a CTA abdomen that showed no abdominal pathology but noted a RLL consolidation c/w RLL PNA. Given the BRBPR shortly after restarting the xarelto with unconcerning post-op abdominal anatomy, I will hold xarelto, place her on a clear liquid diet and monitor H/H. Surgery was made aware of the LGIB by the ED. I am now admitting her for RLL PNA. PAST MEDICAL HISTORY: 1. Chronic obstructive pulmonary disease (COPD). 2. Hypercholesterolemia. 3. Essential tremors. 4. Atrial fibrillation. 5. Sleep apnea. 6. Chronic hypoxemic respiratory failure on baseline up to 2L NC (sometimes does not use it) PAST SURGICAL HISTORY: 1. Hysterectomy. 2. Appendectomy. 3. Left breast lumpectomy (benign). 4. Recent R colectomy on 07/12 for benign sessile polyp in ileocecal valve, surgery done by Dr. Guadarrama SOCIAL HISTORY: Quit smoking in 1991. She drinks one 5 ounce glass of wine per day. She denies drug use. She lives at home with her . She reports no recent travel and she is a retired banker as of 2004. Was recently hospitalized at [facility] for lap R colectomy FAMILY HISTORY: Mother had a history of hypertension, hypercholesterolemia, arthritis, and dementia. Father at the age of 62 from lung cancer. One brother has alpha-1 antitrypsin deficiency and as a complication from lung transplant medications. Another brother has atrial fibrillation. ALLERGIES: Please see below. REVIEW OF SYSTEMS: 10 point ROS was completed, and it was negative except the pertinent positives noted in the HPI HOME MEDICATIONS: Please see below. PHYSICAL EXAMINATION: VITAL SIGNS: Please see below GENERAL APPEARANCE: NAD, AOx3 HEENT: NCAT, MMM, EOMI, PERRLA CARDIOVASCULAR: In sinus today, RRR, no m/r/g LUNGS: RLL wet crackles, otherwise clear throughout without wheezing or rhonchi ABDOMEN: Normoactive sounds, healed lap sites, soft, NTND EXTREMITIES: WWP, no LE edema NEUROLOGICAL: CN 2-12 intact, moving all extremities with no noted focal deficits, essential tremors noted per baseline according to the patient PSYCHIATRIC: AOx3 LABORATORY DATA and IMAGING: Discussed above in HPI. See below for full details MICROBIOLOGY: Please see below. ASSESSMENT: 69 yo W with COPD on chronic oxygen therapy at 2L NC, who recently underwent a lap R colectomy for a benign sessile polyp in the ileocecal valve found of routine colonoscopy, and surgery was on 07/[address] Guadarrama and was discharged home without any complications, who now returned to the ED with a worsening productive cough and yamel fever to 102.4 and found to have a leukocytosis to 16.3 and a RLL consolidation c/w RLL PNA on imaging and admitted for RLL PNA. She also had BRBPR shortly after restarting the xarelto with unconcerning post-op abdominal anatomy on imaging and examination and therefore, I will hold xarelto, place her on a clear liquid diet and monitor H/H. PLAN: RLL PNA: Reporting productive cough, fever, now with leukoctyosis and imaging c/w PNA -Given her high degree of allergies, I will give her vanc/aztreonam/flagyl, and will perform a MRSA swab -f/u procalcitonin -supplemental O2 -incentive spirometry -sputum Cx -urine legionella, strep LGIB: i/s/o recent R colectomy and just restarted xarelto -hold xarelto -clear liquid diet -Daily CBC-monitor BMs and bleeding events -CTA abdomen as noted above -Dr. mendoza was made aware of patient, recommended admission to medicine, no surgical interventions at this time COPD: well controlled -continue home mdis Chronic Afib: -hold eliquis i/s/o LGIB -continue home dilt HLD: -continue home lipitor DVT ppx: TEDs and SCDs Vital Signs Vital Signs Date Time Temp Pulse Resp B/P (MAP) Pulse Ox O2 Delivery O2 Flow Rate FiO2 07/17/20 13:00 97.5 104 18 128/69 (88) 96 Nasal Cannula 2.0 Laboratory Data Labs 24H Laboratory Tests 2 07/17/20 05:39: Lactic Acid Level 0.9, Coronavirus (COVID-19)(PCR) NEGATIVE, Influenza Type A (R T-PCR) NEGATIVE, Influenza Type B (RT-PCR) NEGATIVE, Respiratory Syncytial Virus (PCR) NEGATIVE 07/17/20 05:40: Immature Granulocyte % (Auto) 0.4, Neutrophils (%) (Auto) 87.4H, Lymphocytes (%) (Auto) 5.7L, Monocytes (%) (Auto) 6.0, Eosinophils (%) (Auto) 0.4, Basophils (%) (Auto) 0.1, Neutrophils # (Auto) 14.2H, Lymphocytes # (Auto) 0.9L, Monocytes # (Auto) 1.0H, Eosinophils # (Auto) 0.1, Basophils # (Auto) 0.0, Nucleated Red Blood Cells % (auto) 0.0, Anion Gap 7L, Glomerular Filtration Rate > 60.0, Calcium Level 8.1L, Total Bilirubin 0.7, Direct Bilirubin 0.2, Aspartate Amino Transf (AST/SGOT) 32, Alanine Aminotransferase (ALT/SGPT) 55, Alkaline Phosphatase 85, Total Creatine Kinase 54, Creatine Kinase MB < 1.0, Creatine Kinase MB Relative Index 1.85, Troponin I < 0.02, C-Reactive Protein, Quantitative 1.90H, Total Protein 6.5, Albumin 3.1L, Albumin/Globulin Ratio 0 .9L, Amylase Level 31 07/17/20 05:41: Prothrombin Time 19.9H, Prothromb Time International Ratio 1.65, Activated Partial Thromboplast Time 27.5 07/17/20 11:04: Procalcitonin 0.08 07/17/20 14:04: CBC/BMP Laboratory Tests 07/17/20 05:40 Microbiology Microbiology 07/17/20 Blood Culture, Received Pending 07/17/20 Blood Culture, Received Pending Home Medications Scheduled Albuterol Sulfate (Proair Hfa) 8.5 Gm Hfa.aer.ad, 2 PUFF INH PRN Ascorbic Acid (Vitamin C) 100 Mg Tablet, 120 MG PO DAILY Atorvastatin Calcium (Lipitor) 10 Mg Tab, 10 MG PO Q2D Cholecalciferol (Vitamin D3) (Vitamin D3) 1,000 Unit Tablet, 2,000 UNITS PO DAILY Diltiazem HCl (Diltiazem HCl) 60 Mg Tab, 120 MG PO TID Multivitamins (Thera M Plus Tablet) 1 Tab Tab, 1 TAB PO DAILY Rivaroxaban (Xarelto) 20 Mg Tab, 20 MG PO DAILY Salmeterol/Fluticasone (Advair 250-50 Diskus) 14 Puff/Inhaler Aerp, 1 PUFF INH BID Umeclidinium [place] (Incruse Ellipta) 62.5 Mcg Blst.w.dev, 1 PUFF INH DAILY Scheduled PRN Albuterol Sulf (Albuterol Sulfate) 2.5 Mg/3 Ml Nebu, 2.5 MG INH QIDP PRN for RESPIRATORY DISTRESS Allergies Coded Allergies: Penicillins (Verified Allergy, Intermediate, hives, 07/17/20) cefaclor (Verified Allergy, Intermediate, hives, 07/17/20) sulfamethoxazole (Verified Allergy, Intermediate, hives, 07/17/20) trimethoprim (Verified Allergy, Intermediate, hives, 07/17/20) levofloxacin (Verified Adverse Reaction, Intermediate, tendon pains, 07/17/20) A-FIB/CHADSVASC A-FIB History Current/History of A-Fib/PAF?: Yes Current PO Anticoag Therapy: No Age/Risk Factor Scoring CHADSVASC: CHADSVASC Response (Comments) Value Age Risk Factor Age 65-74 years old 1 Gender Risk Factor Female 1 Hx of CHF No 0 Hx of HTN Yes 1 Hx of Stroke/TIA/or VTE No 0 Hx of Diabetes No 0 Hx of Vascular Disease No 0 Total 3 Treatment Treatment ordered: NONE Reason Anticoagulant not given: Current bleeding NEREYDA CESPEDES MD July 17, 2020 15:13
[2020-07-17] MEDS: AZTREONAM 1 GM in D5W MINI-BAG PLUS 50 ML IV SCH ×2 (15:18→22:09)
[2020-07-17] MEDS: VANCOMYCIN HCL 750 MG, VIAL MATE ADAPTER 1 EACH in NS 250 ML IV SCH (20:22)
[2020-07-17 22:00] VITALS: BP 124/69
--- NOTE | 2020-07-17 23:41 | CR.PDOC ---
General Surgery Consultation Date of Consultation 07/17/20 History and Physical CONSULT REPORT FOR: postop right colectomy REASON FOR CONSULTATION: rectal bleeding HISTORY OF PRESENT ILLNESS: PAST MEDICAL HISTORY: 1. . PAST SURGICAL HISTORY: INCLUDES: 1. . PREVIOUS ANESTHESIA REACTIONS: ALLERGIES: Please see below. FAMILY HISTORY: . HOME MEDICATIONS: Please see below. REVIEW OF SYSTEMS: GENERAL: [Denies chills, reports weight gain, reports feeling febrile yesterday]. HEENT: [Denies blurred vision and double vision. Denies ear symptoms. Denies hoarseness]. NECK: Denies any neck pain]. CARDIOVASCULAR: [Denies chest pain and palpitations]. MUSCULOSKELETAL: [Denies arthralgias, back pain and thrombophlebitis]. SKIN: [Denies rash]. NEUROLOGIC: [Denies headache, stroke and transient ischemic attack]. PSYCHIATRIC: [Denies anxiety and depression]. ENDOCRINE: [Denies thyroid disease]. HEMATOLOGY/ONCOLOGY: [Denies bleeding or clotting disorder]. HEART: [Denies any chest pains, palpitations, paroxysmal dyspnea, orthopnea]. PULMONARY: [Denies chronic cough, dyspnea and wheezing]. GASTROINTESTINAL: [Denies rectal bleeding, family history of colon cancer, constipation, diarrhea, dysphagia, heartburn and jaundice]. GENITOURINARY: [Denies dysuria, frequency, hematuria and nocturia]. ENDOCRINE: [Denies polydipsia, polyphagia, polyuria, heat or cold intolerance]. INFECTIOUS: [Denies any recent upper respiratory tract infection, UTI, need for use of antibiotics]. NUTRITION: [Reports good appetite]. PHYSICAL EXAMINATION: VITALS SIGNS: Please see below. GENERAL APPEARANCE:[Patient seen, laying in bed, awake, alert, and oriented. Comfortable, in no acute distress]. SKIN: [Warm and moist]. HEENT: [Normocephalic, atraumatic. [place] palpebral conjunctiva, anicteric sclerae. Lips and mucosa appear moist]. NECK: [Supple, no thyromegaly. No obvious jugular venous distention]. LUNGS: [Clear to auscultation bilaterally. No wheezing appreciated]. HEART: [No chest wall abnormalities. Regular rate and rhythm with no murmurs ap preciated]. ABDOMEN: Abdomen is , soft, . [No hepatosplenomegaly. No umbilical or groin herniations, nondistended. No noticeable rebound or guarding. No grimacing with palpation. No rebound tenderness. No masses appreciated]. EXTREMITIES: [Extremities have no deformities. No edema identified] ANCILLARIES: . LABORATORY DATA: Please see below. IMAGING STUDIES: CT scan abdomen and pelvis IMPRESSION AND PLAN: rectal bleedign probably small staple line bleeding Patient is hemodynamically stable, one episode of bleeding while in the ER. Copntinue to observe. Hold Xarelto. will inform Dr. Estrella of patient's readmission tomorrow am.. Vital Signs Vital Signs Date Time Temp Pulse Resp B/P (MAP) Pulse Ox O2 Delivery O2 Flow Rate FiO2 07/17/20 20:26 80 124/69 07/17/20 19:47 14 07/17/20 14:00 97.6 96 Nasal Cannula 2.0 Laboratory Data Labs 24H Laboratory Tests 2 07/17/20 05:39: Lactic Acid Level 0.9, Coronavirus (COVID-19)(PCR) NEGATIVE, Influenza Type A (RT-PCR) NEGATIVE, Influenza Type B (RT-PCR) NEGATIVE, Respiratory Syncytial Virus (PCR) NEGATIVE 07/17/20 05:40: Immature Granulocyte % (Auto) 0.4, Neutrophils (%) (Auto) 87.4H, Lymphocytes (%) (Auto) 5.7L, Monocytes (%) (Auto) 6.0, Eosinophils (%) (Auto) 0.4, Basophils (%) (Auto) 0.1, Neutrophils # (Auto) 14.2H, Lymphocytes # (Auto) 0.9L, Monocytes # (Auto) 1.0H, Eosinophils # (Auto) 0.1, Basophils # (Auto) 0.0, Nucleated Red Blood Cells % (auto) 0.0, Anion Gap 7L, Glomerular Filtration Rate > 60.0, Calcium Level 8.1L, Total Bilirubin 0.7, Direct Bilirubin 0.2, Aspartate Amino Transf (AST/SGOT) 32, Alanine Aminotransferase (ALT/SGPT) 55, Alkaline Phosphatase 85, Total Creatine Kinase 54, Creatine Kinase MB < 1.0, Creatine Kinase MB Relative Index 1.85, Troponin I < 0.02, C-Reactive Protein, Quantitative 1.90H, Total Protein 6.5, Albumin 3.1L, Albumin/Globulin Ratio 0.9L, Amylase Level 31 07/17/20 05:41: Prothrombin Time 19.9H, Prothromb Time International Ratio 1.65, Activated Partial Thromboplast Time 27.5 07/17/20 11:04: Procalcitonin 0.08 07/17/20 14:04: Methicillin-Resist S.aureus DNA PCR NOT DETECTED CBC/BMP Laboratory Tests 07/17/20 05:40 Microbiology Microbiology 07/17/20 Blood Culture, Received Pending 07/17/20 Blood Culture, Received Pending Home Medications Scheduled Albuterol Sulfate (Proair Hfa) 8.5 Gm Hfa.aer.ad, 2 PUFF INH PRN, (Reported) Ascorbic Acid (Vitamin C) 100 Mg Tablet, 120 MG PO DAILY, (Reported) Atorvastatin Calcium (Lipitor) 10 Mg Tab, 10 MG PO Q2D, (Reported) Cholecalciferol (Vitamin D3) (Vitamin D3) 1,000 Unit Tablet, 2,000 UNITS PO DAILY, (Reported) Diltiazem HCl (Diltiazem HCl) 60 Mg Tab, 120 MG PO TID, (Reported) Multivitamins (Thera M Plus Tablet) 1 Tab Tab, 1 TAB PO DAILY, (Reported) Rivaroxaban (Xarelto) 20 Mg Tab, 20 MG PO DAILY, (Reported) Salmeterol/Fluticasone (Advair 250-50 Diskus) 14 Puff/Inhaler Aerp, 1 PUFF INH BID, (Reported) Umeclidinium [place] (Incruse Ellipta) 62.5 Mcg Blst.w.dev, 1 PUFF INH DAILY, (Reported) Scheduled PRN Albuterol Sulf (Albuterol Sulfate) 2.5 Mg/3 Ml Nebu, 2.5 MG INH QIDP PRN for RESPIRATORY DISTRESS, (Reported) Allergies Coded Allergies: Penicillins (Verified Allergy, Intermediate, hives, 07/17/20) cefaclor (Verified Allergy, Intermediate, hives, 07/17/20) sulfamethoxazole (Verified Allergy, Intermediate, hives, 07/17/20) trimethoprim (Verified Allergy, Intermediate, hives, 07/17/20) levofloxacin (Verified Adverse Reaction, Intermediate, tendon pains, 07/17/20) WOLF WALLACE MD July 17, 2020 23:41
[2020-07-18] MEDS: metroNIDAZOLE 500 MG in IV 1 EA IV SCH ×5 (00:42→23:47)
[2020-07-18 06:00] VITALS: BP 124/69
[2020-07-18] MEDS: AZTREONAM 1 GM in D5W MINI-BAG PLUS 50 ML IV SCH ×3 (06:46→22:57)
[2020-07-18] MEDS: TIOTROPIUM INHALER/CAPSULE (SPIRIVA) INH SCH (07:16)
[2020-07-18] MEDS: ADVAIR HFA 115/21MCG INHALER INH SCH ×2 (07:16→19:42)
[2020-07-18 07:18] LABS: HEMATOCRIT 30.4 % (36.0-47.0); MEAN CORPUSCULAR HEMOGLOBIN 30.5 pg (27.0-33.0); MEAN CORPUSCULAR HGB CONC 31.3 g/dl (32.0-36.5); MEAN CORPUSCULAR VOLUME 97.7 fl (80.0-96.0); PLATELET COUNT, AUTOMATED 201 10^3/uL (150-450); RED BLOOD COUNT 3.11 10^6/uL (4.00-5.40); WHITE BLOOD COUNT 14.1 10^3/uL (4.0-10.0)
[2020-07-18 07:22] LABS: HEMOGLOBIN 9.5 g/dl (12.0-15.5)
[2020-07-18 07:49] LABS: ALBUMIN 2.7 GM/DL (3.2-5.2); ALT/SGPT 38 U/L (12-78); BILIRUBIN,TOTAL 0.3 MG/DL (0.2-1.0); BLOOD UREA NITROGEN 13 MG/DL (7-18); CALCIUM LEVEL 8.1 MG/DL (8.8-10.2); CARBON DIOXIDE LEVEL 26 MEQ/L (21-32); CHLORIDE LEVEL 107 MEQ/L (98-107); CREATININE FOR GFR 0.58 MG/DL (0.55-1.30); GLOMERULAR FILTRATION RATE > 60.0 (>39); GLUCOSE, FASTING 117 MG/DL (70-100); MAGNESIUM LEVEL 1.7 MG/DL (1.8-2.4); SODIUM LEVEL 140 MEQ/L (136-145); TOTAL PROTEIN 5.3 GM/DL (6.4-8.2)
[2020-07-18] MEDS: MULTIVITAMINS/MINERALS THERAP 1 TAB PO SCH (08:15)
[2020-07-18] MEDS: VITAMIN D 1,000 INTERNATIONAL UNITS TABLET PO SCH (08:15)
[2020-07-18] MEDS: VANCOMYCIN HCL 750 MG, VIAL MATE ADAPTER 1 EACH in NS 250 ML IV SCH (08:16)
[2020-07-18] MEDS: OCTREOTIDE ACETATE 100MCG/ML VIAL (J2354 PER 25MCG) IV SCH ×2 (12:14→18:11)
--- NOTE | 2020-07-18 12:54 | IPNPDOC ---
Text Note Date of Service The patient was seen on 07/18/20. NOTE Subjective: -More painless BRBPR this AM. Spoke with Dr. Guadarrama, will see her shortly, and started her on TID octreotide -On 2L NC Objective: VITAL SIGNS: Please see below GENERAL APPEARANCE: NAD, AOx3 HEENT: NCAT, MMM, EOMI, PERRLA CARDIOVASCULAR: In sinus today, RRR, no m/r/g LUNGS: RLL wet crackles, otherwise clear throughout without wheezing or rhonchi ABDOMEN: Normoactive sounds, healed lap sites, soft, NTND EXTREMITIES: WWP, no LE edema NEUROLOGICAL: CN 2-12 intact, moving all extremities with no noted focal deficits, essential tremors noted per baseline according to the patient PSYCHIATRIC: AOx3 LABORATORY DATA: WBC 14.1 Hgb 9.5 Platelets 201 Na 140 Na 4 Cr 0.58 Mag 1.7 MICROBIOLOGY: Please see below. ASSESSMENT: 69 yo W with COPD on chronic oxygen therapy at 2L NC, who recently underwent a lap R colectomy for a benign sessile polyp in the ileocecal valve found of routine colonoscopy, and surgery was on 07/[address] Guadarrama and was discharged home without any complications, who now returned to the ED with a worsening productive cough and yamel fever to 102.4 and found to have a leukocytosis to 16.3 and a RLL consolidation c/w RLL PNA on imaging and admitted for RLL PNA, with course now c/b LGIB i/s/o restarting xarelto. PLAN: RLL PNA: -Given her high degree of allergies, continue aztreonam/flagyl, and dc vanc with negative MRSA PCR -supplemental O2 -incentive spirometry -f/u sputum Cx -f/u urine legionella, strep LGIB: i/s/o recent R colectomy and just restarted xarelto -hold xarelto -clear liquid diet -Daily CBC-monitor BMs and bleeding events may require more frequent H/H checks -CTA abdomen as noted above -Dr. Guadarrama was made aware of patient, started octreotide, to see her shortly COPD: well controlled -continue home mdis Chronic Afib: -hold eliquis i/s/o LGIB -continue home dilt HLD: -continue home lipitor DVT ppx: TEDs and SCDs VS,Fishbone, I+O VS, Fishbone, I+O Laboratory Tests 07/18/20 06:01 Vital Signs Date Time Temp Pulse Resp B/P (MAP) Pulse Ox O2 Delivery O2 Flow Rate FiO2 07/18/20 08:19 97 126/66 07/18/20 06:00 97.6 17 96 Nasal Cannula 2.0 I&O- Last 24 Hours up to 6 AM 07/18/20 06:00 Intake Total 3280 ml Output Total 825 ml Balance 2455 ml NEREYDA CESPEDES MD July 18, 2020 11:30
[2020-07-18 14:00] VITALS: BP 125/58
[2020-07-18 22:00] VITALS: BP 121/53
[2020-07-19] MEDS: OCTREOTIDE ACETATE 100MCG/ML VIAL (J2354 PER 25MCG) IV SCH ×3 (01:08→18:03)
[2020-07-19] MEDS: metroNIDAZOLE 500 MG in IV 1 EA IV SCH ×3 (05:14→18:02)
[2020-07-19 06:00] VITALS: BP 125/57
[2020-07-19 06:26] LABS: HEMATOCRIT 27.1 % (36.0-47.0); HEMOGLOBIN 8.3 g/dl (12.0-15.5); MEAN CORPUSCULAR HGB CONC 30.6 g/dl (32.0-36.5); MEAN CORPUSCULAR VOLUME 97.8 fl (80.0-96.0); PLATELET COUNT, AUTOMATED 218 10^3/uL (150-450); RED BLOOD COUNT 2.77 10^6/uL (4.00-5.40); WHITE BLOOD COUNT 15.8 10^3/uL (4.0-10.0)
[2020-07-19] MEDS: AZTREONAM 1 GM in D5W MINI-BAG PLUS 50 ML IV SCH ×3 (06:30→23:16)
[2020-07-19 06:51] LABS: ALBUMIN 2.6 GM/DL (3.2-5.2); ALT/SGPT 29 U/L (12-78); BILIRUBIN,TOTAL 0.2 MG/DL (0.2-1.0); BLOOD UREA NITROGEN 11 MG/DL (7-18); CALCIUM LEVEL 8.1 MG/DL (8.8-10.2); CARBON DIOXIDE LEVEL 26 MEQ/L (21-32); CHLORIDE LEVEL 110 MEQ/L (98-107); CREATININE FOR GFR 0.59 MG/DL (0.55-1.30); GLOMERULAR FILTRATION RATE > 60.0 (>39); GLUCOSE, FASTING 135 MG/DL (70-100); POTASSIUM SERUM 3.7 MEQ/L (3.5-5.1); SODIUM LEVEL 142 MEQ/L (136-145); TOTAL PROTEIN 4.9 GM/DL (6.4-8.2)
[2020-07-19] MEDS: TIOTROPIUM INHALER/CAPSULE (SPIRIVA) INH SCH (07:16)
[2020-07-19] MEDS: ADVAIR HFA 115/21MCG INHALER INH SCH ×2 (07:16→19:37)
[2020-07-19] MEDS: VITAMIN D 1,000 INTERNATIONAL UNITS TABLET PO SCH (09:00)
[2020-07-19] MEDS: MULTIVITAMINS/MINERALS THERAP 1 TAB PO SCH (09:00)
[2020-07-19] MEDS: ATORVASTATIN 10 MG TAB PO SCH (09:00)
--- NOTE | 2020-07-19 12:39 | IPNPDOC ---
Text Note Date of Service The patient was seen on 07/19/20. NOTE Subjective: -More painless BRBPR that has now slowed down. Had 9 episodes of mixed in diarrhea over the last 24h -On 2L NC Objective: VITAL SIGNS: Please see below GENERAL APPEARANCE: NAD, AOx3 HEENT: NCAT, MMM, EOMI, PERRLA CARDIOVASCULAR: In sinus today, RRR, no m/r/g LUNGS: RLL wet crackles, otherwise clear throughout without wheezing or rhonchi ABDOMEN: Normoactive sounds, healed lap sites, soft, NTND EXTREMITIES: WWP, no LE edema NEUROLOGICAL: CN 2-12 intact, moving all extremities with no noted focal deficits, essential tremors noted per baseline according to the patient PSYCHIATRIC: AOx3 LABORATORY DATA: WBC 15.8 Hgb 8.3 Platelets 218 Na 142 Na 3.7 Cr 0.59 MICROBIOLOGY: Please see below. ASSESSMENT: 69 yo W with COPD on chronic oxygen therapy at 2L [place], who recently underwent a lap R colectomy for a benign sessile polyp in the ileocecal valve found of routine colonoscopy, and surgery was on 07/[address] Guadarrama and was discharged home without any complications, who now returned to the ED with a worsening productive cough and yamel fever to 102.4 and found to have a leukocytosis to 16.3 and a RLL consolidation c/w RLL PNA on imaging and admitted for RLL PNA, with course now c/b LGIB i/s/o restarting xarelto. PLAN: RLL PNA: -Given her high degree of allergies, continue aztreonam/flagyl, and dc vanc with negative MRSA PCR. Day #3 -supplemental O2 -incentive spirometry -f/u sputum Cx -f/u urine legionella, strep LGIB: i/s/o recent R colectomy and just restarted xarelto -holding xarelto -clear liquid diet -Daily CBC-monitor BMs and bleeding events may require more frequent H/H checks -CTA abdomen as noted above -Dr. Guadarrama was made aware of patient, started octreotide -Goal hgb >8 -Check PM H/H COPD: well controlled -continue home mdis Chronic Afib: -holding eliquis i/s/o LGIB -continue home dilt HLD: -continue home lipitor DVT ppx: TEDs and SCDs VS,Fishbone, I+O VS, Fishbone, I+O Laboratory Tests 07/19/20 05:20 Vital Signs Date Time Temp Pulse Resp B/P (MAP) Pulse Ox O2 Delivery O2 Flow Rate FiO2 07/19/20 09:01 75 134/66 07/19/20 06:00 97.2 17 96 Nasal Cannula 2.0 I&O- Last 24 Hours up to 6 AM 07/19/20 06:00 Intake Total 1985 ml Output Total 1375 ml Balance 610 ml NEREYDA CESPEDES MD July 19, 2020 11:32
[2020-07-19 14:00] VITALS: BP 148/65
[2020-07-19 14:12] LABS: HEMATOCRIT 28.7 % (36.0-47.0); HEMOGLOBIN 9.1 g/dl (12.0-15.5)
[2020-07-19 16:09] LABS: MYCOPLASMA PNEUMONIAE IgG 168 U/mL (0-99); MYCOPLASMA PNEUMONIAE IgM <770 U/mL (0-769)
[2020-07-19 22:00] VITALS: BP 147/62
--- NOTE | 2020-07-19 22:29 | IPN ---
PROGRESS NOTE DATE: 07/19/2020 SUBJECTIVE: The patient overall has done well overnight. She has had normal bowel movements overnight and no evidence of blood per rectum since last night. Her hematocrit did come down and I think it is settling out into 27 this morning. And I anticipate this is probably where she is going to settle out, given the amount of bleeding that she had. From my standpoint her abdomen is soft, benign and I would recommend that we increase her diet to a regular diet. However, I would keep her off the anticoagulation for about week before I would restart that. Otherwise continue per treatment from a medical standpoint. She still has some shortness of breath issues and most likely this is secondary to her pneumonia due to chronic obstructive pulmonary disease issues, but otherwise I would recommend continuing per Medicine's recommendations for now.
[2020-07-20] MEDS: metroNIDAZOLE 500 MG in IV 1 EA IV SCH ×2 (00:09→05:34)
[2020-07-20] MEDS: OCTREOTIDE ACETATE 100MCG/ML VIAL (J2354 PER 25MCG) IV SCH ×3 (01:26→17:55)
[2020-07-20 06:00] VITALS: BP 117/56
[2020-07-20 06:32] LABS: HEMATOCRIT 28.5 % (36.0-47.0); HEMOGLOBIN 8.8 g/dl (12.0-15.5); MEAN CORPUSCULAR HEMOGLOBIN 30.3 pg (27.0-33.0); MEAN CORPUSCULAR HGB CONC 30.9 g/dl (32.0-36.5); MEAN CORPUSCULAR VOLUME 98.3 fl (80.0-96.0); PLATELET COUNT, AUTOMATED 231 10^3/uL (150-450); WHITE BLOOD COUNT 9.3 10^3/uL (4.0-10.0)
[2020-07-20] MEDS: AZTREONAM 1 GM in D5W MINI-BAG PLUS 50 ML IV SCH (06:51)
[2020-07-20 07:03] LABS: ALBUMIN 2.5 GM/DL (3.2-5.2); ALT/SGPT 29 U/L (12-78); BILIRUBIN,TOTAL 0.2 MG/DL (0.2-1.0); BLOOD UREA NITROGEN 8 MG/DL (7-18); CALCIUM LEVEL 8.6 MG/DL (8.8-10.2); CARBON DIOXIDE LEVEL 30 MEQ/L (21-32); CHLORIDE LEVEL 108 MEQ/L (98-107); CREATININE FOR GFR 0.52 MG/DL (0.55-1.30); GLOMERULAR FILTRATION RATE > 60.0 (>39); GLUCOSE, FASTING 120 MG/DL (70-100); POTASSIUM SERUM 3.9 MEQ/L (3.5-5.1); SODIUM LEVEL 143 MEQ/L (136-145); TOTAL PROTEIN 4.8 GM/DL (6.4-8.2)
[2020-07-20] MEDS: TIOTROPIUM INHALER/CAPSULE (SPIRIVA) INH SCH (07:26)
[2020-07-20] MEDS: ADVAIR HFA 115/21MCG INHALER INH SCH ×2 (07:26→19:54)
[2020-07-20] MEDS: VITAMIN D 1,000 INTERNATIONAL UNITS TABLET PO SCH (08:53)
[2020-07-20] MEDS: MULTIVITAMINS/MINERALS THERAP 1 TAB PO SCH (08:53)
[2020-07-20 10:13] LABS: MAGNESIUM LEVEL 1.8 MG/DL (1.8-2.4)
[2020-07-20] MEDS: DOXYCYCLINE HYCLATE 100MG TABLET PO SCH ×2 (12:37→21:20)
--- NOTE | 2020-07-20 13:19 | IPNPDOC ---
Text Note Date of Service The patient was seen on 07/20/20. NOTE Subjective: -No episodes of hematochezia overnight -On baseline 2L NC Objective: VITAL SIGNS: Please see below GENERAL APPEARANCE: NAD, AOx3 HEENT: NCAT, MMM, EOMI, PERRLA CARDIOVASCULAR: In sinus today, RRR, no m/r/g LUNGS: RLL wet crackles, otherwise clear throughout without wheezing or rhonchi ABDOMEN: Normoactive sounds, healed lap sites, soft, NTND EXTREMITIES: WWP, no LE edema NEUROLOGICAL: CN 2-12 intact, moving all extremities with no noted focal deficits, essential tremors noted per baseline according to the patient PSYCHIATRIC: AOx3 LABORATORY DATA: WBC 9.3 Hgb 8.8 Platelets 231 Na 143 Na 3.9 Cr 0.52 Mycoplasma IgG + MICROBIOLOGY: Please see below. ASSESSMENT: 69 yo W with COPD on chronic oxygen therapy at 2L [place], who recently underwent a lap R colectomy for a benign sessile polyp in the ileocecal valve found of routine colonoscopy, and surgery was on 07/[address] Guadarrama and was discharged home without any complications, who now returned to the ED with a worsening productive cough and yamel fever to 102.4 and found to have a leukocytosis to 16.3 and a RLL consolidation c/w RLL PNA on imaging and admitted for RLL PNA, with course now c/b LGIB i/s/o restarting xarelto. PLAN: RLL PNA: -Given her high degree of allergies, continue aztreonam/flagyl that should cover GI tract as well as alix negatives gram pos, negative and anerobes. Added azithro given mycoplasma IgG that positive. May have had recent mycoplasma infection. IgM is negative. Day #4 of abx, will de-escalate to PO doxy that will cover likely recent mycoplasma -supplemental O2 -incentive spirometry -f/u sputum Cx -f/u urine legionella, strep LGIB: i/s/o recent R colectomy and just restarted xarelto -holding xarelto, per surgery, to hold for another week. -was advanced to regular diet at breakfast today -Daily CBC-monitor BMs and bleeding events may require more frequent H/H checks -CTA abdomen as noted above -Dr. Guadarrama consulted, started octreotide, no surgical intervention -Goal hgb >8 COPD: well controlled -continue home mdis Chronic hypoxemic respiratory failure: -On home 2L Chronic Afib: -holding eliquis i/s/o LGIB -continue home dilt HLD: -continue home lipitor DVT ppx: TEDs and SCDs Dispo: Likely home tomorrow if she tolerated regular diet without further bleeding episodes and hypoxemia remains stable. VS,Fishbone, I+O VS, Fishbone, I+O Laboratory Tests 07/19/20 13:48 07/20/20 05:15 Vital Signs Date Time Temp Pulse Resp B/P (MAP) Pulse Ox O2 Delivery O2 Flow Rate FiO2 07/20/20 08:53 98 143/64 07/20/20 06:00 97.5 20 98 Nasal Cannula 2.0 I&O- Last 24 Hours up to 6 AM 07/20/20 05:59 Intake Total 1740 ml Output Total 1525 ml Balance 215 ml NEREYDA CESPEDES MD July 20, 2020 09:39
--- NOTE | 2020-07-20 13:25 | IPNPDOC ---
Text Note Date of Service The patient was seen on 07/20/20. NOTE Gen. surgery. Dr. Guadarrama The patient is a 69-year-old female S/P lap R colectomy 07/[address] Guadarrama, admitted 07/17/20 with pneumonia. She also had had an episode of bright red blood per rectum in the emergency department. Xarelto is currently on hold. She states she has not had any further blood in her stool. Afebrile Heart rate 98, restrained rate 20, blood pressure 117/56, 98% 2 L nasal cannula. Awake and alert, sitting up in bed Abdomen. Flat, soft, nontender. Surgical sites C/D/I WBC 9.3, decreased. Hemoglobin 8.8, similar compared with yesterday 9.1/8.3 Assessment/plan Status post lap right colectomy 07/12/[address] Guadarrama. The patient states she has had no further blood in her stool or bright red blood per rectum. Hemoglobin 8.8. Regular diet Continue to hold Xarelto. Tentative plan to restart in one week. VS,Fishbone, I+O VS, Fishbone, I+O Laboratory Tests 07/19/20 13:48 07/20/20 05:15 Vital Signs Date Time Temp Pulse Resp B/P (MAP) Pulse Ox O2 Delivery O2 Flow Rate FiO2 07/20/20 08:53 98 143/64 07/20/20 06:00 97.5 20 98 Nasal Cannula 2.0 I&O- Last 24 Hours up to 6 AM 07/20/20 05:59 Intake Total 1740 ml Output Total 1525 ml Balance 215 ml Cheli Castro July 20, 2020 13:25
[2020-07-20 14:00] VITALS: BP 132/62
[2020-07-20 14:09] LABS: BODY FLUID CULTURE Not indicated. (.); LEGIONELLA ANTIGEN URINE Negative (Negative); ORGANISM ID Not indicated. (.); SPECIMEN SOURCE Urine (.); URINE STREP PNEUMONIAE ANTIGEN Negative (Negative)
[2020-07-20 22:00] VITALS: BP 126/58
[2020-07-21] MEDS: OCTREOTIDE ACETATE 100MCG/ML VIAL (J2354 PER 25MCG) IV SCH (01:21)
[2020-07-21 06:00] VITALS: BP 111/59
[2020-07-21 06:44] LABS: HEMATOCRIT 27.9 % (36.0-47.0); HEMOGLOBIN 8.6 g/dl (12.0-15.5); MEAN CORPUSCULAR HGB CONC 30.8 g/dl (32.0-36.5); MEAN CORPUSCULAR VOLUME 97.2 fl (80.0-96.0); PLATELET COUNT, AUTOMATED 245 10^3/uL (150-450); RED BLOOD COUNT 2.87 10^6/uL (4.00-5.40); WHITE BLOOD COUNT 10.4 10^3/uL (4.0-10.0)
[2020-07-21 07:18] LABS: ALBUMIN 2.5 GM/DL (3.2-5.2); ALT/SGPT 28 U/L (12-78); BILIRUBIN,TOTAL 0.3 MG/DL (0.2-1.0); BLOOD UREA NITROGEN 9 MG/DL (7-18); CARBON DIOXIDE LEVEL 31 MEQ/L (21-32); CHLORIDE LEVEL 106 MEQ/L (98-107); GLOMERULAR FILTRATION RATE > 60.0 (>39); GLUCOSE, FASTING 112 MG/DL (70-100); POTASSIUM SERUM 3.7 MEQ/L (3.5-5.1); SODIUM LEVEL 141 MEQ/L (136-145); TOTAL PROTEIN 4.7 GM/DL (6.4-8.2)
[2020-07-21] MEDS: ADVAIR HFA 115/21MCG INHALER INH SCH (07:34)
[2020-07-21] MEDS: TIOTROPIUM INHALER/CAPSULE (SPIRIVA) INH SCH (07:34)
[2020-07-21] MEDS ORDERED: LOPERAMIDE 2 MG CAPLET PO PRN (08:00)
--- NOTE | 2020-07-21 08:35 | IPNPDOC ---
Text Note Date of Service The patient was seen on 07/21/20. NOTE Gen. surgery. Dr. Guadarrama The patient is a 69-year-old female S/P lap R colectomy 07/[address] Guadarrama, admitted 07/17/20 with pneumonia. She also had had an episode of bright red blood per rectum in the emergency department. Xarelto is currently on hold. She states she has not had any further blood in her stool. BMs have slowed and states last BM yesterday afternoon, soft. Afebrile VSS Awake and alert, sitting up in bed Abdomen. Flat, soft, nontender. Surgical sites C/D/I WBC 10.4. Hemoglobin 8.6, similar compared with yesterday 9.1/8.8 Assessment/plan Status post lap right colectomy 07/12/[address] Guadarrama. The patient states she has had no further blood in her stool or bright red blood per rectum. Hemoglobin 8.6. Regular diet Octreotide discontinued Continue to hold Xarelto. Tentative plan to restart in one week. The patient has continued to have several watery and soft bowel movements but states her last bowel movement was yesterday afternoon. Dr. Guadarrama has discussed with the patient that she could use Imodium if needed for diarrhea. From surgical standpoint the patient would be okay for discharge when medically cleared. Follow-up in one week with Dr. Guadarrama. Continue to hold Xarelto until follow-up appointment. VS,Fishbone, I+O VS, Fishbone, I+O Laboratory Tests 07/21/20 05:23 Vital Signs Date Time Temp Pulse Resp B/P (MAP) Pulse Ox O2 Delivery O2 Flow Rate FiO2 07/21/20 06:00 96.8 94 17 111/59 (76) 95 Nasal Cannula 07/20/20 22:00 2.0 I&O- Last 24 Hours up to 6 AM 07/21/20 05:59 Intake Total 1410 ml Output Total 1000 ml Balance 410 ml Cheli Castro July 21, 2020 08:35
[2020-07-21] MEDS ORDERED: AZITHROMYCIN 250MG TABLET PO SCH (09:00)
[2020-07-21] MEDS: MULTIVITAMINS/MINERALS THERAP 1 TAB PO SCH (09:10)
[2020-07-21] MEDS: DOXYCYCLINE HYCLATE 100MG TABLET PO SCH (09:10)
[2020-07-21] MEDS: VITAMIN D 1,000 INTERNATIONAL UNITS TABLET PO SCH (09:10)
[2020-07-21] MEDS: ATORVASTATIN 10 MG TAB PO SCH (09:10)
[2020-07-21 09:11] VITALS: BP 108/69
[2020-07-21] MEDS ORDERED: DOXY100T PO (11:09)
[2020-07-21] MEDS ORDERED: ANTI2TAB16 PO (11:09)
--- NOTE | 2020-07-21 11:23 | DS.PDOC ---
Discharge Summary General Date of Admission July 17, 2020 at 10:04 Date of Discharge 07/21/2020 Attending Physician: NEREYDA CESPEDES MD Discharge Summary PROCEDURES PERFORMED DURING STAY: None ADMITTING DIAGNOSES: PNA LGIB DISCHARGE DIAGNOSES: CAP, suspected mycoplasma with +IgG LGIB i/s/o restarting xarelto post R hemicolectomy Chronic obstructive pulmonary disease (COPD). Hypercholesterolemia. Essential tremors. Chronic Atrial fibrillation. Sleep apnea. Chronic hypoxemic respiratory failure on 2L NC COMPLICATIONS/CHIEF COMPLAINT: Lower Gi Bleed & Pneumonia. HISTORY OF PRESENT ILLNESS: 69 yo W with COPD on chronic oxygen therapy at 2L NC, who recently underwent a lap R colectomy for a benign sessile polyp in the ileocecal valve found of routine colonoscopy, and surgery was on 07/[address] Guadarrama and was discharged home without any complications, who now returned to the ED with a worsening productive cough and yamel fever to 102.4 at home. Of note, she has a history of Afib on xarelto that was held since 07/08 and was recently restarted the evening prior to presentation per surgeon's direction. Since hospital discharge, she reports that she had been doing well, stool had slowly turned brown and was formed without abdominal pain and was tolerating a regular diet. She reports first noting the fever the day before presentation but the cough had been slight and nonproductive at discharge and then slowly got worse while she was home. She otherwise did not have chills, chest pain, nausea, emesis, abdominal pain, palpitations or sick contacts. HOSPITAL COURSE: In the ED, she was hemodynamically stable and afebrile and had noted bloody bowel movement which she reports to be the first time she has ever had one, i/s/o restarting xarelto the night prior. Investigations were notable for leukocytosis to 16.3, CRP of 1.9, hgb 12.3, platelets 242, na 140, K 3.7, Cr 0.7, CXR that was unremarkable, AXR that showed a non-specific bowel gas pattern and a CTA abdomen that showed no abdominal pathology but noted a RLL consolidation c/w RLL PNA. Given the BRBPR shortly after restarting the xarelto with unconcerning post-op abdominal anatomy, the xarelto was held, she was placed on a clear liquid diet andsurgery was made aware of the LGIB by the ED a nd she was admitted for RLL PNA and LGIB. She had 3d of aztreonam/flagyl/vanc for 3d after which she was switched to doxycycline after MRSA PCR was negative and infectious workup showed high titer for Mycoplasma IgG antibodies, though I should note that the IgM was negative. Fevers resolved, and SOB and cough subsided. As for LGIB Dr. Guadarrama started her on IV octreotide TID and held her xarelto and slowly reintroduced a diet. She did well with resolution of yamel hematochezia to greenish stool. Thankfully her H/H never did get hgb<8 and she did not require transfusions. She is now being discharged home to follow up with her PCP and surgeon within 1 week of hospital discharge, while completing a doxy course for the PNA and holding her xarelto until she is seen by Dr. Guadarrama in clinic. DISCHARGE MEDICATIONS: Please see below. ALLERGIES: Please see below. PHYSICAL EXAMINATION ON DISCHARGE: VITAL SIGNS: Please see below. GENERAL APPEARANCE: NAD, AOx3 HEENT: NCAT, MMM, EOMI, PERRLA CARDIOVASCULAR: In sinus today, RRR, no m/r/g LUNGS: RLL wet crackles, otherwise clear throughout without wheezing or rhonchi ABDOMEN: Normoactive sounds, healed lap sites, soft, NTND EXTREMITIES: WWP, no LE edema NEUROLOGICAL: CN 2-12 intact, moving all extremities with no noted focal deficits, essential tremors noted per baseline according to the patient PSYCHIATRIC: AOx3 LABORATORY DATA: Please see below. IMAGING: CTA abdomen: Digital preliminary manager mechanical radiographs demonstrate surgical clips scattered in the abdomen with multiple large and small bowel air-fluid levels seen. The lung ba ses demonstrated a fairly large area of consolidation in the right lower lobe consistent with pneumonia. There is no evidence of pleural effusion. There is mild diffuse fatty infiltration of the liver and there are geographic areas of fat sparing in the right lobe of the liver anteriorly and laterally. No hepatic mass lesion is seen. The gallbladder is unremarkable. There is a stable cyst in the superolateral margin of the spleen measuring 1.9 cm. No adrenal abnormality is observed. No abnormality is noted in the pancreas. Kidneys enhance symmetrically and are morphologically intact. There is moderate left colonic diverticulosis without CT evidence of diverticulitis. There is an anastomotic suture line in the right colon suggesting previous right colectomy. Small and large bowel loops are otherwise unremarkable. No obstructive lesion is seen. Uterus is surgically absent. No adnexal abnormality is observed. No retroperitoneal mass or adenopathy is seen. There is good opacification of the arterial tree. Vascular calcification is observed in a normal caliber aorta. There is calcific plaquing at the origin of both the superior mesenteric and celiac axis but no high-grade stenosis is suspected. Singular nonstenotic renal arteries are observed bilaterally. The inferior mesenteric artery is patent. The common iliac arteries are heavily calcified but patent. The external and internal iliac arteries are widely patent. No bony destructive lesion is seen. IMPRESSION: 1. Left colonic diverticulosis without CT evidence of diverticulitis. No colonic mass lesion is seen. Post right colon resection. 2. Moderate multifocal vascular calcification. No high-grade stenosis or visceral artery occlusion seen. 3. Fatty infiltration of the liver with areas of fat sparing in the right lobe. 4. Right lower lobe consolidation consistent with pneumonia. AXR: Tubes, catheters and devices: Surgical clips and sutures overlie the right lower quadrant. Gastrointestinal tract: The small bowel is not significantly air-distended. Air and stool are present within large bowel. Intraperitoneal space: No free air is evident. Bones/joints: Degenerative changes involve the spine. Soft tissues: There are multiple skin makayla. IMPRESSION: Nonspecific bowel gas pattern. CXR: Lungs: The lungs are again hyperinflated. There is minor streaky bibasilar atelectasis. No new consolidation. Pleural spaces: Unremarkable. No pleural effusion. No pneumothorax. Heart/Mediastinum: The cardiomediastinal silhouette is fairly stable in appearance, allowing for differences in technique. Bones/joints: Unremarkable. IMPRESSION: Hyperinflation, as on 09/09/17, without new disease. PROGNOSIS: Good ACTIVITY: As tolerated DIET: regular DISCHARGE PLAN: Home with doxy course for PNA, hold xarelto and with PRN loperamide. DISPOSITION: Home DISCHARGE INSTRUCTIONS: Home with doxy course for PNA, hold xarelto and with PRN loperamide. ITEMS TO FOLLOWUP ON ON OUTPATIENT: LGIB Restarting of xarelto for history of paroxysmal Afib PNA DISCHARGE CONDITION: Stable TIME SPENT ON DISCHARGE: 45 minutes. Vital Signs/I&Os Vital Signs Date Time Temp Pulse Resp B/P (MAP) Pulse Ox O2 Delivery O2 Flow Rate FiO2 07/21/20 09:11 107 108/69 07/21/20 06:00 96.8 17 95 Nasal Cannula 07/20/20 22:00 2.0 I&O- Last 24 Hours up to 6 AM 07/21/20 06:00 Intake Total 1560 ml Output Total 1000 ml Balance 560 ml Laboratory Data Labs 24H Laboratory Tests 2 07/21/20 05:23: Nucleated Red Blood Cells % (auto) 0.0, Anion Gap 4L, Glomerular Filtration Rate > 60.0, Calcium Level 8.0L, Total Bilirubin 0.3, Aspartate Amino Transf (AST/SGOT) 20, Alanine Aminotransferase (ALT/SGPT) 28, Alkaline Phosphatase 60, Total Protein 4.7L, Albumin 2.5L, Albumin/Globulin Ratio 1.1L CBC/BMP Laboratory Tests 07/21/20 05:23 Microbiology Microbiology 07/17/20 Blood Culture - Preliminary, Resulted No Growth after 72 hours. All specime... 07/17/20 Blood Culture - Preliminary, Resulted No Growth after 72 hours. All specime... Discharge Medications Scheduled Albuterol Sulfate (Proair Hfa) 8.5 Gm Hfa.aer.ad, 2 PUFF INH PRN, (Reported) Ascorbic Acid (Vitamin C) 100 Mg Tablet, 120 MG PO DAILY, (Reported) Atorvastatin Calcium (Lipitor) 10 Mg Tab, 10 MG PO Q2D, (Reported) Cholecalciferol (Vitamin D3) (Vitamin D3) 1,000 Unit Tablet, 2,000 UNITS PO DAILY, (Reported) Diltiazem HCl (Diltiazem HCl) 60 Mg Tab, 120 MG PO TID, (Reported) Doxycycline Hyclate (Doxycycline Hyclate) 100 Mg Tablet, 100 MG PO BID Multivitamins (Thera M Plus Tablet) 1 Tab Tab, 1 TAB PO DAILY, (Reported) Salmeterol/Fluticasone (Advair 250-50 Diskus) 14 Puff/Inhaler Aerp, 1 PUFF INH BID, (Reported) Umeclidinium Butler (Incruse Ellipta) 62.5 Mcg Blst.w.dev, 1 PUFF INH DAILY, (Reported) Scheduled PRN Albuterol Sulf (Albuterol Sulfate) 2.5 Mg/3 Ml Nebu, 2.5 MG INH QIDP PRN for RESPIRATORY DISTRESS, (Reported) Loperamide HCl (Anti-Diarrheal) 2 Mg Tablet, 2 MG PO ASDIRECTED PRN for DIARRHEA Allergies Coded Allergies: Penicillins (Verified Allergy, Intermediate, hives, 07/17/20) cefaclor (Verified Allergy, Intermediate, hives, 07/17/20) sulfamethoxazole (Verified Allergy, Intermediate, hives, 07/17/20) trimethoprim (Verified Allergy, Intermediate, hives, 07/17/20) levofloxacin (Verified Adverse Reaction, Intermediate, tendon pains, 07/17/20) NEREYDA CESPEDES MD July 21, 2020 11:23
== END 2020-07-21 13:10 | disposition home or self-care (01) | DRG 194 ==
LOC: M ED 04:59 → M ED INP 10:04 → ENRESERV 11:41 → M MSPAV 12:45
PROVIDERS: ADMIT Internal Medicine; ATTEND Internal Medicine
DX: J18.9 Pneumonia, unspecified organism (principal); K92.2 Gastrointestinal hemorrhage, unspecified; I48.20 Chronic atrial fibrillation, unspecified; J96.11 Chronic respiratory failure with hypoxia; J44.9 Chronic obstructive pulmonary disease, unspecified; E78.5 Hyperlipidemia, unspecified; G25.0 Essential tremor; G47.33 Obstructive sleep apnea (adult) (pediatric); D72.829 Elevated white blood cell count, unspecified; Z99.81 Dependence on supplemental oxygen; Z79.01 Long term (current) use of anticoagulants; Z90.79 Acquired absence of other genital organ(s); Z90.49 Acquired absence of other specified parts of digestive tract; Z87.891 Personal history of nicotine dependence; Z20.822 Contact with and (suspected) exposure to COVID-19; Z79.899 Other long term (current) drug therapy; Z88.0 Allergy status to penicillin; Z88.2 Allergy status to sulfonamides; Z88.1 Allergy status to other antibiotic agents; Z88.8 Allergy status to other drugs, medicaments and biological substances

== ENCOUNTER → 2020-07-27 | Outpatient (CLI) | payer MEDICARE, OTHER ==
[~2020-07-27] MED LIST changes: +ANTI2TAB16 PO; +DOXY100T PO
[2020-07-27 17:54] LABS: HEMATOCRIT 33.4 % (36.0-47.0); HEMOGLOBIN 10.1 g/dl (12.0-15.5); MEAN CORPUSCULAR HEMOGLOBIN 30.1 pg (27.0-33.0); MEAN CORPUSCULAR HGB CONC 30.2 g/dl (32.0-36.5); MEAN CORPUSCULAR VOLUME 99.7 fl (80.0-96.0); PLATELET COUNT, AUTOMATED 403 10^3/uL (150-450); RED BLOOD COUNT 3.35 10^6/uL (4.00-5.40); WHITE BLOOD COUNT 11.1 10^3/uL (4.0-10.0)
== END ==
LOC: M LAB 16:19
PROVIDERS: ATTEND Nurse Practitioner Family
DX: I48.0 Paroxysmal atrial fibrillation (principal)

== ENCOUNTER → 2020-11-07 | Outpatient (CLI) | payer MEDICARE, OTHER ==
--- NOTE | 2020-11-07 09:28 | REPMRS ---
Patient History The patient states she has not had a clinical breast exam in over a year. Patient is postmenopausal and has history of other cancer at age 63. No known family history of cancer. Benign excisional biopsy of the right breast, 1989. Patient states no breast complaints today. Patient has signed MRS History Sheet. Digital Woman Screen Mammo: November 07, 2020 - Exam #: [id number] Bilateral CC and MLO view(s) were taken. Technologist: Yisel Gallagher, Technologist Prior study comparison: December 02, 2018, bilateral digital woman screen mammo performed at [facility]. March 22, 2017, digital woman screen mammo performed at [facility]. FINDINGS: There are scattered fibroglandular densities. Screening. Digital screening (2D) mammography was performed bilaterally in the CC and MLO projections. Additionally, breast tomosynthesis (3D mammography) was performed bilaterally in the CC and MLO projections. Todays exam was compared to the prior exam/exams. By history, the patient has no complaints of a palpable breast abnormality or other significant breast complaints. The breasts are unchanged in size and shape. There are no danielle-soft tissue densities or spiculated masses. There is no internal architectural distortion. Once again, stable benign appearing calcifications are seen.There are no suspicious danielle-calcific clusters. Skin thickening or nipple retraction is not present. IMPRESSION: BI-RADS Category 2- Benign Findings. There is no evidence of malignant alteration of the breasts. Followup examination recommended in one year. The Volpara volumetric breast density category is B, there are scattered areas of fibroglandular densities. This mammogram was read with the assistance of [facility],an FDA approved computer aided detection system for mammography. The lifetime Tyrer-Cuzick score is 3.8 % Negative x-ray reports should not delay surgical consultation if a dominant or clinically suspicious mass is present. Not all breast cancers can be identified by mammography. Therefore, we recommend that you continue to perform regular breast self-examination and physical examination and then promptly contact your physician of any concerns or changes. Adenosis and dense breasts may obscure an underlying neoplasm. Assessment: BI-RADS/ACR category 2 mammogram. Benign Findings. Recommendation Routine screening mammogram of both breasts in 1 year. Electronically Signed By: Ludwig Dean DO 11/07/20 0903
== END ==
LOC: M WHC 07:40
PROVIDERS: ATTEND Family Medicine
DX: Z12.31 Encounter for screening mammogram for malignant neoplasm of breast (principal)

== ENCOUNTER → 2021-11-05 | Outpatient (CLI) | payer MEDICARE, OTHER ==
[~2021-11-05] MED LIST changes: +ALBU2.5V10 INH; -ALBU83IN INH; +ATOR1TAB19; -D31000TA2 PO; +FLUT1BLS IH; +LEVO1TAB40 PO; -LEVO750T13 PO; -METR-135 PO; +METR-369 PO; +VITA100093 PO; +XARE20TA
== END ==
LOC: M LABSMTC 09:29
PROVIDERS: ATTEND Anesthesiology
DX: Z01.812 Encounter for preprocedural laboratory examination (principal); Z20.822 Contact with and (suspected) exposure to COVID-19

== ENCOUNTER → 2021-11-30 | Outpatient (CLI) | payer MEDICARE, OTHER ==
[~2021-11-30] MED LIST changes: -XARE20TA
== END ==
LOC: M LABSMTC 09:24
PROVIDERS: ATTEND Anesthesiology
DX: Z01.812 Encounter for preprocedural laboratory examination (principal); Z20.822 Contact with and (suspected) exposure to COVID-19

== ENCOUNTER 2021-12-05 08:16 | Day surgery (SDC) | payer MEDICARE, OTHER ==
[~2021-12-05] VITALS: Ht 170.2 cm; Wt 58.6 kg
[~2021-12-05 08:16] MED LIST changes: +KETOROLAC 60MG 2ML VIAL As Ordered ONE; +LIDOCAINE 2% 100MG/5ML SDV (FOR ANES.) As Ordered ONE; +MIDAZOLAM INJ 2MG/2ML VIAL (J2250 PER 1MG) As Ordered ONE; +ONDANSETRON 4MG 2ML VIAL As Ordered ONE; +ROCURONIUM BROMIDE 50 MG/5 ML VIAL As Ordered ONE; +dexameTHASONE 4 MG/ML 1ML VIAL (J1100 PER 1MG) As Ordered ONE; +fentaNYL 100 MCG/2 ML INJECTION As Ordered ONE; +propofoL 200 MG/20 ML VIAL As Ordered ONE
[2021-12-05] MEDS ORDERED: KETAMINE HCL 200 MG/20 ML VIAL As Ordered ONE (08:20)
[2021-12-05] MEDS ORDERED: LR 1,000 ML IV SCH ×2 (08:25→11:55)
[2021-12-05] MEDS ORDERED: SUGAMMADEX SODIUM 500 MG/5 ML VIAL (BRIDION) As Ordered ONE (08:32)
[2021-12-05] MEDS ORDERED: BUPIVACAINE HCL 0.25% 10ML VIAL As Ordered ONE (09:26)
[2021-12-05] MEDS ORDERED: BUPIVACAINE/EPIN 0.25% 30 ML VIAL As Ordered ONE (09:26)
[2021-12-05] MEDS ORDERED: BUPIVACAINE LIPOSOME/PF 1.3% 20ML VIAL (13.3MG/ML)(EXPAREL) As Ordered ONE (09:26)
[2021-12-05] MEDS ORDERED: AZITHROMYCIN INJ 500 MG, VIAL MATE ADAPTER 1 EACH in NS 250 ML IV ONE (09:30)
[2021-12-05] MEDS ORDERED: ACETAMINOPHEN 1000MG 100ML IV BTL (OFIRMEV) (J0131 PER 10MG) As Ordered ONE (10:26)
[2021-12-05] MEDS ORDERED: LACRILUBE (AKWA TEARS) OPHTH OINT 3.5 GM As Ordered ONE (10:32)
[2021-12-05] MEDS ORDERED: ePHEDrine SULFATE 25 MG/5 ML(5MG/ML) SYRINGE As Ordered ONE (10:56)
[2021-12-05] MEDS ORDERED: PHENYLephrine 500MCG 5ML (100MCG/ML) SYRINGE As Ordered ONE ×2 (10:56→11:37)
[2021-12-05] MEDS ORDERED: oxyCODONE 5MG TAB PO PRN (11:55)
[2021-12-05] MEDS ORDERED: ONDANSETRON 4MG 2ML VIAL IV PRN (11:55)
[2021-12-05] MEDS ORDERED: HYDROMORPHONE HCL 0.5 MG/ 0.5 ML SYRINGE (J1170 PER 1) IV PRN (11:55)
[2021-12-05] MEDS ORDERED: fentaNYL 100 MCG/2 ML INJECTION IV PRN (11:55)
[2021-12-05] MEDS ORDERED: traMADol 50 MG TAB PO PRN ×2 (12:20)
[2021-12-05] MEDS ORDERED: NS 1,000 ML IV SCH (12:20)
[2021-12-05 14:00] VITALS: BP 130/75
== END 2021-12-05 14:18 | disposition home or self-care (01) ==
LOC: M SDC 08:16
PROVIDERS: ATTEND Surgery
DX: K43.2 Incisional hernia without obstruction or gangrene (principal); M62.08 Separation of muscle (nontraumatic), other site; Z93.3 Colostomy status; E78.5 Hyperlipidemia, unspecified; J44.9 Chronic obstructive pulmonary disease, unspecified; G47.30 Sleep apnea, unspecified; R25.1 Tremor, unspecified; I48.0 Paroxysmal atrial fibrillation; E78.2 Mixed hyperlipidemia; R03.0 Elevated blood-pressure reading, without diagnosis of hypertension; R07.9 Chest pain, unspecified; R06.00 Dyspnea, unspecified; Z79.899 Other long term (current) drug therapy; Z79.51 Long term (current) use of inhaled steroids; Z79.01 Long term (current) use of anticoagulants; Z88.0 Allergy status to penicillin; Z88.1 Allergy status to other antibiotic agents; Z88.2 Allergy status to sulfonamides; Z88.8 Allergy status to other drugs, medicaments and biological substances
CPT/HCPCS: 49654; C1781; C9290; J0131; J0456; J1100; J1885; J2250; J2370; J2405; J3010; S2900

== ENCOUNTER → 2022-03-05 | Outpatient (CLI) | payer MEDICARE, OTHER ==
[~2022-03-05] MED LIST changes: +ALBU90AE INH; +ASCO250T20 PO; +FLEC1TAB PO; +FLUT1BLS2 IH; -KETOROLAC 60MG 2ML VIAL As Ordered ONE; -LIDOCAINE 2% 100MG/5ML SDV (FOR ANES.) As Ordered ONE; -MIDAZOLAM INJ 2MG/2ML VIAL (J2250 PER 1MG) As Ordered ONE; +NYST-38 SS; -NYST50SS SS; -ONDANSETRON 4MG 2ML VIAL As Ordered ONE; -ROCURONIUM BROMIDE 50 MG/5 ML VIAL As Ordered ONE; -dexameTHASONE 4 MG/ML 1ML VIAL (J1100 PER 1MG) As Ordered ONE; -fentaNYL 100 MCG/2 ML INJECTION As Ordered ONE; -propofoL 200 MG/20 ML VIAL As Ordered ONE
== END ==
LOC: M LABSMTC 10:16
PROVIDERS: ATTEND Anesthesiology
DX: Z01.812 Encounter for preprocedural laboratory examination (principal); Z20.822 Contact with and (suspected) exposure to COVID-19

== ENCOUNTER 2022-03-08 06:01 | Day surgery (SDC) | payer MEDICARE, OTHER ==
[~2022-03-08] VITALS: Ht 170.2 cm; Wt 56.3 kg
[2022-03-08] MEDS ORDERED: LR 1,000 ML IV SCH (06:55)
[2022-03-08] MEDS ORDERED: propofoL 200 MG/20 ML VIAL As Ordered ONE (07:17)
[2022-03-08 08:04] VITALS: BP 129/69
== END 2022-03-08 08:24 | disposition home or self-care (01) ==
LOC: M SDC 06:01
PROVIDERS: ATTEND Internal Medicine Cardiovascular Disease
DX: I48.19 Other persistent atrial fibrillation (principal); G47.33 Obstructive sleep apnea (adult) (pediatric); I10 Essential (primary) hypertension; E78.5 Hyperlipidemia, unspecified; G43.909 Migraine, unspecified, not intractable, without status migrainosus; J44.9 Chronic obstructive pulmonary disease, unspecified; G25.0 Essential tremor; Z79.02 Long term (current) use of antithrombotics/antiplatelets; Z79.899 Other long term (current) drug therapy; Z79.51 Long term (current) use of inhaled steroids; Z88.1 Allergy status to other antibiotic agents; Z88.0 Allergy status to penicillin; Z88.2 Allergy status to sulfonamides; Z87.891 Personal history of nicotine dependence

== ENCOUNTER 2022-06-28 08:47 | Inpatient (IN) | payer MEDICARE, OTHER ==
[~2022-06-28] VITALS: Ht 170.2 cm; Wt 47.7 kg
[~2022-06-28 08:47] MED LIST changes: -DILT1CAP5 PO; +DILT240C41 PO; -FLUT1BLS2 IH; +FLUT1BLS2 INH
[2022-06-28] MEDS ORDERED: methylPREDNISolone 125MG 2ML VIAL IV ONE (09:20)
[2022-06-28] MEDS: IPRATROPIUM 0.5MG/ALBUTEROL 2.5MG INH SOL UD 3ML (DUONEB) NEB PRN ×3 (09:28→09:42)
[2022-06-28 09:36] LABS: BASO % 0.1 % (0.0-1.0); EOS % 0.1 % (0.0-3.0); HEMATOCRIT 45.3 % (36.0-47.0); HEMOGLOBIN 14.6 g/dl (12.0-15.5); LYMPH # 0.5 10^3/uL (1.5-5.0); LYMPH % 3.2 % (24.0-44.0); MEAN CORPUSCULAR HEMOGLOBIN 30.9 pg (27.0-33.0); MEAN CORPUSCULAR HGB CONC 32.2 g/dl (32.0-36.5); MEAN CORPUSCULAR VOLUME 95.8 fl (80.0-96.0); MONO # 0.8 10^3/uL (0.0-0.8); MONO % 4.9 % (2.0-8.0); NEUTROPHILS # 14.9 10^3/uL (1.5-8.5); NEUTROPHILS % 91.3 % (36.0-66.0); PLATELET COUNT, AUTOMATED 229 10^3/uL (150-450); RED BLOOD COUNT 4.73 10^6/uL (4.00-5.40); WHITE BLOOD COUNT 16.3 10^3/uL (4.0-10.0)
[2022-06-28] MEDS ORDERED: DOXYCYCLINE HYCLATE 100MG TABLET PO ONE (09:50)
[2022-06-28] MEDS ORDERED: MEROPENEM INJ 1 GM in IV 1 EA IV ONE (09:50)
[2022-06-28 09:53] VITALS: O2SAT 93
[2022-06-28 10:00] LABS: ALBUMIN 3.9 G/DL (3.2-5.2); ALKALINE PHOSPHATASE 152 U/L (46-116); ALT/SGPT 79 U/L (7.0-40); AST/SGOT 83 U/L (<34); BILIRUBIN,DIRECT 0.4 MG/DL (<0.4); BILIRUBIN,TOTAL 0.9 MG/DL (0.3-1.2); BLOOD UREA NITROGEN 10 MG/DL (9-23); CALCIUM LEVEL 9.2 MG/DL (8.3-10.6); CARBON DIOXIDE LEVEL 27 MMOL/L (20-31); CHLORIDE LEVEL 101 MMOL/L (98-107); CREATININE FOR GFR 0.76 MG/DL (0.55-1.30); GLOMERULAR FILTRATION RATE > 60.0 (>39); GLUCOSE, FASTING 122 MG/DL (74-106); POTASSIUM SERUM 4.2 MMOL/L (3.5-5.1); SODIUM LEVEL 137 MMOL/L (136-145); TOTAL PROTEIN 7.1 G/DL (5.7-8.2)
[2022-06-28 10:02] LABS: THYROID STIMULATING HORMONE 0.432 uIU/ML (0.55-4.78)
[2022-06-28] MEDS ORDERED: HOME MED LIST COMPLETE! XX SCH (12:10)
[2022-06-28] MEDS ORDERED: ALBUTEROL SULFATE 2.5MG/0.5ML INH NEB SOLN INH PRN (13:35)
[2022-06-28 14:00] VITALS: BP 103/70
[2022-06-28 14:50] VITALS: BP 103/70
[2022-06-28] MEDS ORDERED: MOXIFLOXACIN HCL 400 MG in IV 1 EA IV SCH ×2 (15:00→16:00)
[2022-06-28] MEDS: RIVAROXABAN 20MG TAB (XARELTO) PO SCH (16:25)
[2022-06-28] MEDS: ATORVASTATIN 10 MG TAB PO SCH (16:25)
[2022-06-28] MEDS: ADVAIR HFA 230/21MCG INHALER INH SCH (19:41)
[2022-06-28] MEDS: guaiFENesin ER 600 MG TAB PO SCH (20:22)
[2022-06-28] MEDS: FLECAINIDE 50MG TABLET PO SCH (20:22)
[2022-06-28 21:00] VITALS: BP 109/52
[2022-06-28] MEDS ORDERED: ENTER DRUG NAME HERE (PATIENT'S OWN MED) PO SCH (21:00)
[2022-06-29 06:00] VITALS: BP 117/55
[2022-06-29 06:10] LABS: MEAN CORPUSCULAR HEMOGLOBIN 30.7 pg (27.0-33.0); MEAN CORPUSCULAR HGB CONC 31.8 g/dl (32.0-36.5); MEAN CORPUSCULAR VOLUME 96.5 fl (80.0-96.0); PLATELET COUNT, AUTOMATED 201 10^3/uL (150-450); RED BLOOD COUNT 4.04 10^6/uL (4.00-5.40); WHITE BLOOD COUNT 17.2 10^3/uL (4.0-10.0)
[2022-06-29 06:39] LABS: BLOOD UREA NITROGEN 13 MG/DL (9-23); CALCIUM LEVEL 9.4 MG/DL (8.3-10.6); CARBON DIOXIDE LEVEL 27 MMOL/L (20-31); CHLORIDE LEVEL 106 MMOL/L (98-107); CREATININE FOR GFR 0.74 MG/DL (0.55-1.30); GLOMERULAR FILTRATION RATE > 60.0 (>39); GLUCOSE, FASTING 141 MG/DL (74-106); SODIUM LEVEL 141 MMOL/L (136-145)
[2022-06-29 06:44] LABS: HEMOGLOBIN 12.4 g/dl (12.0-15.5)
[2022-06-29] MEDS: TIOTROPIUM INHALER/CAPSULE (SPIRIVA) INH SCH (07:30)
[2022-06-29] MEDS: ADVAIR HFA 230/21MCG INHALER INH SCH ×2 (07:30→20:03)
[2022-06-29] MEDS: VITAMIN D 1,000 INTERNATIONAL UNITS TABLET PO SCH (09:42)
[2022-06-29] MEDS: predniSONE 20 MG TAB PO SCH (09:42)
[2022-06-29] MEDS: MULTIVITAMINS/MINERALS THERAP 1 TAB PO SCH (09:42)
[2022-06-29] MEDS: ASCORBIC ACID 250 MG TAB PO SCH (09:42)
[2022-06-29] MEDS: FLECAINIDE 50MG TABLET PO SCH ×2 (09:42→22:11)
[2022-06-29] MEDS: guaiFENesin ER 600 MG TAB PO SCH ×2 (09:43→22:11)
[2022-06-29 14:00] VITALS: BP 121/56
[2022-06-29] MEDS: RIVAROXABAN 20MG TAB (XARELTO) PO SCH (17:03)
[2022-06-29] MEDS: MOXIFLOXACIN 400 MG TAB PO SCH (17:05)
[2022-06-29 21:30] VITALS: BP 132/53
[2022-06-30 04:50] VITALS: BP 124/63
[2022-06-30 06:23] LABS: HEMATOCRIT 38.1 % (36.0-47.0); HEMOGLOBIN 11.9 g/dl (12.0-15.5); MEAN CORPUSCULAR HEMOGLOBIN 30.6 pg (27.0-33.0); MEAN CORPUSCULAR HGB CONC 31.2 g/dl (32.0-36.5); MEAN CORPUSCULAR VOLUME 97.9 fl (80.0-96.0); PLATELET COUNT, AUTOMATED 240 10^3/uL (150-450); RED BLOOD COUNT 3.89 10^6/uL (4.00-5.40); WHITE BLOOD COUNT 18.2 10^3/uL (4.0-10.0)
[2022-06-30 06:49] LABS: BLOOD UREA NITROGEN 20 MG/DL (9-23); CALCIUM LEVEL 8.9 MG/DL (8.3-10.6); CARBON DIOXIDE LEVEL 29 MMOL/L (20-31); CHLORIDE LEVEL 105 MMOL/L (98-107); CREATININE FOR GFR 0.72 MG/DL (0.55-1.30); GLOMERULAR FILTRATION RATE > 60.0 (>39); GLUCOSE, FASTING 111 MG/DL (74-106); POTASSIUM SERUM 4.1 MMOL/L (3.5-5.1); SODIUM LEVEL 141 MMOL/L (136-145)
[2022-06-30] MEDS: ADVAIR HFA 230/21MCG INHALER INH SCH ×2 (08:05→19:45)
[2022-06-30] MEDS: TIOTROPIUM INHALER/CAPSULE (SPIRIVA) INH SCH (08:05)
[2022-06-30] MEDS: predniSONE 20 MG TAB PO SCH (09:44)
[2022-06-30] MEDS: VITAMIN D 1,000 INTERNATIONAL UNITS TABLET PO SCH (09:44)
[2022-06-30] MEDS: MULTIVITAMINS/MINERALS THERAP 1 TAB PO SCH (09:44)
[2022-06-30] MEDS: FLECAINIDE 50MG TABLET PO SCH ×2 (09:45→21:05)
[2022-06-30] MEDS: guaiFENesin ER 600 MG TAB PO SCH ×2 (09:45→21:05)
[2022-06-30] MEDS: ASCORBIC ACID 250 MG TAB PO SCH (09:45)
[2022-06-30] MEDS: ATORVASTATIN 10 MG TAB PO SCH (09:45)
[2022-06-30 14:00] VITALS: BP 129/62
[2022-06-30] MEDS: MOXIFLOXACIN 400 MG TAB PO SCH (17:14)
[2022-06-30] MEDS: RIVAROXABAN 20MG TAB (XARELTO) PO SCH (17:15)
[2022-06-30 20:30] VITALS: BP 121/57
[2022-07-01 04:40] VITALS: BP 120/54
[2022-07-01 07:12] LABS: HEMATOCRIT 39.9 % (36.0-47.0); HEMOGLOBIN 12.3 g/dl (12.0-15.5); MEAN CORPUSCULAR HEMOGLOBIN 30.3 pg (27.0-33.0); MEAN CORPUSCULAR HGB CONC 30.8 g/dl (32.0-36.5); MEAN CORPUSCULAR VOLUME 98.3 fl (80.0-96.0); PLATELET COUNT, AUTOMATED 209 10^3/uL (150-450); RED BLOOD COUNT 4.06 10^6/uL (4.00-5.40); WHITE BLOOD COUNT 11.8 10^3/uL (4.0-10.0)
[2022-07-01 07:42] LABS: BLOOD UREA NITROGEN 15 MG/DL (9-23); CALCIUM LEVEL 8.5 MG/DL (8.3-10.6); CARBON DIOXIDE LEVEL 31 MMOL/L (20-31); CHLORIDE LEVEL 107 MMOL/L (98-107); GLOMERULAR FILTRATION RATE > 60.0 (>39); GLUCOSE, FASTING 92 MG/DL (74-106); POTASSIUM SERUM 3.9 MMOL/L (3.5-5.1); SODIUM LEVEL 142 MMOL/L (136-145)
[2022-07-01] MEDS: ADVAIR HFA 230/21MCG INHALER INH SCH (08:03)
[2022-07-01] MEDS: TIOTROPIUM INHALER/CAPSULE (SPIRIVA) INH SCH (08:03)
[2022-07-01] MEDS: ASCORBIC ACID 250 MG TAB PO SCH (09:25)
[2022-07-01] MEDS: predniSONE 20 MG TAB PO SCH (09:25)
[2022-07-01 09:26] VITALS: BP 153/58
[2022-07-01] MEDS: MULTIVITAMINS/MINERALS THERAP 1 TAB PO SCH (09:26)
[2022-07-01] MEDS ORDERED: MOXI1TAB PO (09:26)
[2022-07-01] MEDS: FLECAINIDE 50MG TABLET PO SCH (09:26)
[2022-07-01] MEDS: guaiFENesin ER 600 MG TAB PO SCH (09:26)
[2022-07-01] MEDS ORDERED: PRED20TA PO (09:26)
[2022-07-01] MEDS: VITAMIN D 1,000 INTERNATIONAL UNITS TABLET PO SCH (09:26)
== END 2022-07-01 10:05 | disposition home or self-care (01) | DRG 193 ==
LOC: M ED 08:47 → M ED INP 13:31 → ENRESERV 14:12 → M MSPAV 14:37
PROVIDERS: ADMIT Family Medicine; ATTEND Family Medicine
DX: J15.9 Unspecified bacterial pneumonia (principal); J96.21 Acute and chronic respiratory failure with hypoxia; J44.0 Chronic obstructive pulmonary disease with (acute) lower respiratory infection; J44.1 Chronic obstructive pulmonary disease with (acute) exacerbation; I48.20 Chronic atrial fibrillation, unspecified; G47.33 Obstructive sleep apnea (adult) (pediatric); Z99.81 Dependence on supplemental oxygen; E78.00 Pure hypercholesterolemia, unspecified; E88.01 Alpha-1-antitrypsin deficiency; Z79.01 Long term (current) use of anticoagulants; Z79.899 Other long term (current) drug therapy; Z88.0 Allergy status to penicillin; Z88.1 Allergy status to other antibiotic agents; Z88.2 Allergy status to sulfonamides; Z88.8 Allergy status to other drugs, medicaments and biological substances; Z90.49 Acquired absence of other specified parts of digestive tract; Z87.891 Personal history of nicotine dependence

== ENCOUNTER → 2022-07-30 | Outpatient (CLI) | payer MEDICARE, OTHER ==
[~2022-07-30] MED LIST changes: +MONT10TA97 PO; +MOXI1TAB PO; +PRED10TA2 PO; +PRED20TA PO
== END ==
LOC: M CLY 10:05
PROVIDERS: ATTEND Internal Medicine Pulmonary Disease
DX: R91.8 Other nonspecific abnormal finding of lung field (principal); J44.9 Chronic obstructive pulmonary disease, unspecified

== ENCOUNTER 2022-07-31 13:10 | Inpatient (IN) | payer MEDICARE, OTHER ==
[~2022-07-31] VITALS: Ht 170.2 cm; Wt 55.9 kg
[~2022-07-31 13:10] MED LIST changes: -MONT10TA97 PO; -PRED10TA2 PO
[2022-07-31] MEDS ORDERED: IPRATROPIUM 0.5MG/ALBUTEROL 2.5MG INH SOL UD 3ML (DUONEB) NEB ONE (13:30)
[2022-07-31] MEDS ORDERED: methylPREDNISolone 125MG 2ML VIAL IV ONE (13:30)
[2022-07-31 14:13] LABS: BASO % 0.1 % (0.0-1.0); EOS # 0.1 10^3/uL (0.0-0.5); EOS % 1.2 % (0.0-3.0); HEMATOCRIT 38.8 % (36.0-47.0); HEMOGLOBIN 12.2 g/dl (12.0-15.5); LYMPH # 1.2 10^3/uL (1.5-5.0); LYMPH % 14.6 % (24.0-44.0); MEAN CORPUSCULAR HEMOGLOBIN 30.6 pg (27.0-33.0); MEAN CORPUSCULAR HGB CONC 31.4 g/dl (32.0-36.5); MEAN CORPUSCULAR VOLUME 97.2 fl (80.0-96.0); MONO # 0.5 10^3/uL (0.0-0.8); MONO % 6.4 % (2.0-8.0); NEUTROPHILS # 6.5 10^3/uL (1.5-8.5); NEUTROPHILS % 77.3 % (36.0-66.0); PLATELET COUNT, AUTOMATED 334 10^3/uL (150-450); RED BLOOD COUNT 3.99 10^6/uL (4.00-5.40); WHITE BLOOD COUNT 8.4 10^3/uL (4.0-10.0)
[2022-07-31 14:43] LABS: ALBUMIN 2.8 G/DL (3.2-5.2); ALKALINE PHOSPHATASE 150 U/L (46-116); ALT/SGPT 38 U/L (7.0-40); AST/SGOT 25 U/L (<34); BILIRUBIN,DIRECT 0.1 MG/DL (<0.4); BILIRUBIN,TOTAL 0.4 MG/DL (0.3-1.2); BLOOD UREA NITROGEN 12 MG/DL (9-23); CALCIUM LEVEL 8.9 MG/DL (8.3-10.6); CARBON DIOXIDE LEVEL 28 MMOL/L (20-31); CHLORIDE LEVEL 102 MMOL/L (98-107); CK-MB VALUE MASS < 1.0 NG/ML (<3.6); CPK CREATINE PHOSPHOKINASE 41 U/L (34-145); CREATININE FOR GFR 0.73 MG/DL (0.55-1.30); GLOMERULAR FILTRATION RATE > 60.0 (>39); GLUCOSE, FASTING 119 MG/DL (74-106); MB/CK RELATIVE INDEX 2.43 (< OR =4); SODIUM LEVEL 139 MMOL/L (136-145); TOTAL PROTEIN 6.1 G/DL (5.7-8.2)
[2022-07-31 14:44] LABS: THYROID STIMULATING HORMONE 0.502 uIU/ML (0.55-4.78)
[2022-07-31 14:45] LABS: THYROXINE (T4) 10.2 UG/DL (4.5-10.9)
[2022-07-31 15:43] LABS: CK-MB VALUE MASS < 1.0 NG/ML (<3.6)
[2022-07-31 15:44] LABS: CPK CREATINE PHOSPHOKINASE 40 U/L (34-145)
[2022-07-31 16:40] VITALS: O2SAT 84
[2022-07-31] MEDS ORDERED: HOME MED LIST COMPLETE! XX SCH (17:40)
[2022-07-31] MEDS ORDERED: ISOVUE-370 76% 100ML VIAL As Ordered ONE (17:41)
[2022-07-31] MEDS ORDERED: ALBUTEROL SULFATE 2.5MG/0.5ML INH NEB SOLN INH PRN (17:50)
[2022-07-31] MEDS ORDERED: AZITHROMYCIN 250MG TABLET PO SCH (18:00)
[2022-07-31] MEDS: RIVAROXABAN 20MG TAB (XARELTO) PO SCH (18:34)
[2022-07-31] MEDS: VITAMIN D 1,000 INTERNATIONAL UNITS TABLET PO SCH (18:34)
[2022-07-31 19:52] VITALS: BP 135/72; TEMP 97.5; O2SAT 92
[2022-07-31] MEDS: ASCORBIC ACID 250 MG TAB PO SCH (20:55)
[2022-07-31] MEDS: methylPREDNISolone 40MG 1ML VIAL IV SCH (20:56)
[2022-07-31] MEDS: FLECAINIDE 50MG TABLET PO SCH (20:56)
[2022-07-31] MEDS: IPRATROPIUM 0.5MG/ALBUTEROL 2.5MG INH SOL UD 3ML (DUONEB) NEB SCH (22:18)
[2022-07-31] MEDS: ADVAIR HFA 115/21MCG INHALER INH SCH (22:21)
[2022-07-31 23:47] VITALS: BP 109/55; TEMP 97.5; O2SAT 95
[2022-08-01] MEDS: methylPREDNISolone 40MG 1ML VIAL IV SCH ×4 (02:04→20:25)
[2022-08-01] MEDS: IPRATROPIUM 0.5MG/ALBUTEROL 2.5MG INH SOL UD 3ML (DUONEB) NEB SCH ×7 (03:10→23:11)
[2022-08-01 03:39] VITALS: BP 113/56; TEMP 98.1; O2SAT 95
[2022-08-01] MEDS: ADVAIR HFA 115/21MCG INHALER INH SCH ×2 (07:53→20:46)
[2022-08-01 08:00] VITALS: BP 136/65; TEMP 96.6; O2SAT 97
[2022-08-01] MEDS: VITAMIN D 1,000 INTERNATIONAL UNITS TABLET PO SCH (08:53)
[2022-08-01] MEDS: MULTIVITAMINS/MINERALS THERAP 1 TAB PO SCH (08:53)
[2022-08-01] MEDS: FLECAINIDE 50MG TABLET PO SCH ×2 (08:54→20:24)
[2022-08-01] MEDS: ASCORBIC ACID 250 MG TAB PO SCH (08:54)
[2022-08-01] MEDS ORDERED: ENOXAPARIN 40MG/0.4ML SYRINGE (J1650 PER 10MG) SC SCH (09:00)
[2022-08-01] MEDS ORDERED: ATORVASTATIN 10 MG TAB PO SCH (09:00)
[2022-08-01 12:00] VITALS: BP 130/56; TEMP 96.9; O2SAT 93
[2022-08-01 17:36] VITALS: BP 149/67; TEMP 96.9; O2SAT 90
[2022-08-01] MEDS: RIVAROXABAN 20MG TAB (XARELTO) PO SCH (17:38)
[2022-08-01 18:30] VITALS: BP 144/70; TEMP 97.2; O2SAT 90
[2022-08-01] MEDS ORDERED: DOCUSATE SODIUM 100MG CAPSULE PO PRN (20:00)
[2022-08-01 21:00] VITALS: BP 128/63; TEMP 97.5; O2SAT 93
[2022-08-01] MEDS ORDERED: MONTELUKAST 10 MG TAB PO SCH (21:00)
[2022-08-02 02:00] VITALS: BP 126/62; TEMP 97.7; O2SAT 93
[2022-08-02] MEDS: methylPREDNISolone 40MG 1ML VIAL IV SCH ×3 (02:18→13:46)
[2022-08-02] MEDS: IPRATROPIUM 0.5MG/ALBUTEROL 2.5MG INH SOL UD 3ML (DUONEB) NEB SCH ×3 (03:33→11:20)
[2022-08-02 06:00] VITALS: BP 127/62; TEMP 97.5; O2SAT 91
[2022-08-02 06:12] LABS: HEMATOCRIT 35.2 % (36.0-47.0); HEMOGLOBIN 10.9 g/dl (12.0-15.5); MEAN CORPUSCULAR HEMOGLOBIN 30.8 pg (27.0-33.0); MEAN CORPUSCULAR VOLUME 99.4 fl (80.0-96.0); PLATELET COUNT, AUTOMATED 368 10^3/uL (150-450); RED BLOOD COUNT 3.54 10^6/uL (4.00-5.40); WHITE BLOOD COUNT 15.8 10^3/uL (4.0-10.0)
[2022-08-02 06:40] LABS: BLOOD UREA NITROGEN 18 MG/DL (9-23); CALCIUM LEVEL 8.6 MG/DL (8.3-10.6); CARBON DIOXIDE LEVEL 29 MMOL/L (20-31); CHLORIDE LEVEL 104 MMOL/L (98-107); CREATININE FOR GFR 0.64 MG/DL (0.55-1.30); GLOMERULAR FILTRATION RATE > 60.0 (>39); GLUCOSE, FASTING 129 MG/DL (74-106); MAGNESIUM LEVEL 1.9 MG/DL (1.8-2.4); PHOSPHORUS LEVEL 4.2 MG/DL (2.4-5.1); POTASSIUM SERUM 4.5 MMOL/L (3.5-5.1); SODIUM LEVEL 142 MMOL/L (136-145)
[2022-08-02] MEDS: ADVAIR HFA 115/21MCG INHALER INH SCH (07:53)
[2022-08-02 08:23] VITALS: BP 121/64
[2022-08-02] MEDS: ASCORBIC ACID 250 MG TAB PO SCH (08:23)
[2022-08-02] MEDS: FLECAINIDE 50MG TABLET PO SCH (08:23)
[2022-08-02] MEDS: VITAMIN D 1,000 INTERNATIONAL UNITS TABLET PO SCH (08:23)
[2022-08-02] MEDS: MULTIVITAMINS/MINERALS THERAP 1 TAB PO SCH (08:23)
[2022-08-02 10:00] VITALS: BP 126/62; TEMP 97.7; O2SAT 92
[2022-08-02] MEDS ORDERED: PRED10TA2 PO (13:04)
[2022-08-02] MEDS ORDERED: MONT10TA97 PO (13:04)
== END 2022-08-02 13:58 | disposition home health service (06) | DRG 189 ==
LOC: M ED 13:10 → EDBD 13:10 → M ED INP 17:30 → M MS4PR 19:44 → M MSPAV 08-01 18:23
PROVIDERS: ADMIT Internal Medicine; ATTEND Internal Medicine
DX: J96.21 Acute and chronic respiratory failure with hypoxia (principal); J44.1 Chronic obstructive pulmonary disease with (acute) exacerbation; E78.00 Pure hypercholesterolemia, unspecified; G25.0 Essential tremor; I48.91 Unspecified atrial fibrillation; G47.33 Obstructive sleep apnea (adult) (pediatric); E88.01 Alpha-1-antitrypsin deficiency; Z99.81 Dependence on supplemental oxygen; Z90.49 Acquired absence of other specified parts of digestive tract; Z90.79 Acquired absence of other genital organ(s); Z79.01 Long term (current) use of anticoagulants; Z79.52 Long term (current) use of systemic steroids; Z79.899 Other long term (current) drug therapy; Z88.0 Allergy status to penicillin; Z88.1 Allergy status to other antibiotic agents; Z88.2 Allergy status to sulfonamides; Z88.8 Allergy status to other drugs, medicaments and biological substances; Z20.822 Contact with and (suspected) exposure to COVID-19

== ENCOUNTER 2024-03-02 20:53 | Inpatient (IN) | payer MEDICARE, OTHER ==
[~2024-03-02] VITALS: Ht 170.2 cm; Wt 60.4 kg
[~2024-03-02 20:53] MED LIST changes: -ADV250INH INH; +ADVA1AER9 INH; -ALBU90AE INH; +ALBU90AE2 INH; -BIOT50004 PO; +BIOT5CAP8 PO; +MONT10TA97 PO; +PRED10TA2 PO
[2024-03-02] MEDS: IPRATROPIUM 0.5MG/ALBUTEROL 2.5MG INH SOL UD 3ML (DUONEB) NEB PRN (21:10)
[2024-03-02] MEDS: IPRATROPIUM 0.5MG/ALBUTEROL 2.5MG INH SOL UD 3ML (DUONEB) NEB ONE (21:10)
[2024-03-02 21:13] LABS: ABG BASE EXCESS -1.1 (-2.0-2.0); ABG HCO3 24.1 MMOL/L (22.0-26.0); ABG O2 SATURATION 99.1 % (95.0-99.0); ABG PARTIAL PRESSURE CO2 42.1 mmHg (35.0-45.0); ABG PARTIAL PRESSURE O2 220.4 mmHg (75.0-100.0); ABG STANDARD HCO3 23.6 MMOL/L. (22.0-26.0); ABG TOTAL CO2 25.4 MMOL/L (23.0-31.0); ABG pH (ARTERIAL) 7.376 UNITS (7.350-7.450)
[2024-03-02 21:27] LABS: BASO % 0.1 % (0.0-1.0); EOS # 0.1 10^3/uL (0.0-0.5); EOS % 0.4 % (0.0-3.0); HEMATOCRIT 43.1 % (36.0-47.0); HEMOGLOBIN 13.7 g/dl (12.0-15.5); LYMPH # 2.2 10^3/uL (1.5-5.0); LYMPH % 12.7 % (24.0-44.0); MEAN CORPUSCULAR HEMOGLOBIN 31.9 pg (27.0-33.0); MEAN CORPUSCULAR HGB CONC 31.8 g/dl (32.0-36.5); MEAN CORPUSCULAR VOLUME 100.2 fl (80.0-96.0); MONO % 5.6 % (2.0-8.0); NEUTROPHILS # 13.9 10^3/uL (1.5-8.5); NEUTROPHILS % 80.7 % (36.0-66.0); PLATELET COUNT, AUTOMATED 232 10^3/uL (150-450); WHITE BLOOD COUNT 17.2 10^3/uL (4.0-10.0)
[2024-03-02] MEDS: ACETAMINOPHEN *IV* 1,000 MG in IV 1 EA IV ONE (21:50)
[2024-03-02 21:53] LABS: THYROID STIMULATING HORMONE 1.115 uIU/ML (0.55-4.78)
[2024-03-02 21:58] LABS: PROCALCITONIN 0.12 ng/ml
[2024-03-02 22:00] LABS: ALBUMIN 3.7 G/DL (3.2-5.2); ALKALINE PHOSPHATASE 79 U/L (35-104); ALT/SGPT 33 U/L (7.0-40); AST/SGOT 49 U/L (<34); BILIRUBIN,DIRECT < 0.1 MG/DL (<0.4); BILIRUBIN,TOTAL 0.4 MG/DL (0.3-1.2); BLOOD UREA NITROGEN 13 MG/DL (9-23); CALCIUM LEVEL 9.4 MG/DL (8.3-10.6); CARBON DIOXIDE LEVEL 32 MMOL/L (20-31); CHLORIDE LEVEL 102 MMOL/L (98-107); CREATININE FOR GFR 0.82 MG/DL (0.55-1.30); GLOMERULAR FILTRATION RATE > 60.0 (>39); GLUCOSE, FASTING 128 MG/DL (74-106); POTASSIUM SERUM 4.6 MMOL/L (3.5-5.1); SODIUM LEVEL 141 MMOL/L (136-145); TOTAL PROTEIN 6.9 G/DL (5.7-8.2)
[2024-03-02] MEDS ORDERED: ISOVUE-370 76% 100ML VIAL As Ordered ONE (22:28)
[2024-03-02] MEDS ORDERED: ALBU8.5H INH (23:53)
[2024-03-02] MEDS ORDERED: THERTAB52 PO (23:53)
[2024-03-02] MEDS ORDERED: HOME MED LIST COMPLETE! XX SCH (23:55)
[2024-03-03] VITALS (12 sets, daily range): BP systolic 118–165; BP diastolic 62–76; TEMP 96.8–98.3; O2SAT 91–100
[2024-03-03] MEDS ORDERED: MAALOX 30 ML SUSP *UDC PO PRN (01:20)
[2024-03-03] MEDS ORDERED: ACETAMINOPHEN 325 MG TAB PO PRN (01:20)
[2024-03-03] MEDS ORDERED: MOM 30ML SUSPENSION UDC PO PRN (01:20)
[2024-03-03] MEDS ORDERED: ALBUTEROL 90 MCG/ACT 8GM HFA INHALER INH PRN (01:35)
[2024-03-03] MEDS ORDERED: CEFEPIME HCL 1 GM in DEXTROSE 5% (D5W) ADV/MINI-BAG 50 ML IV SCH (03:00)
[2024-03-03] MEDS: AZITHROMYCIN 250MG TABLET PO SCH (03:29)
[2024-03-03] MEDS: DOXYCYCLINE HYCLATE 100MG TABLET PO SCH (03:29)
[2024-03-03] MEDS: methylPREDNISolone 125MG 2ML VIAL IV SCH ×2 (03:29→10:53)
[2024-03-03] MEDS: MEROPENEM INJ 1 GM in IV 1 EA IV SCH (06:13)
[2024-03-03] MEDS: guaiFENesin ER TABLET 600 MG TAB PO SCH (06:21)
[2024-03-03 07:35] LABS: HEMATOCRIT 41.9 % (36.0-47.0); HEMOGLOBIN 13.2 g/dl (12.0-15.5); MEAN CORPUSCULAR HEMOGLOBIN 30.7 pg (27.0-33.0); MEAN CORPUSCULAR HGB CONC 31.5 g/dl (32.0-36.5); MEAN CORPUSCULAR VOLUME 97.4 fl (80.0-96.0); PLATELET COUNT, AUTOMATED 194 10^3/uL (150-450); WHITE BLOOD COUNT 8.3 10^3/uL (4.0-10.0)
[2024-03-03 07:52] LABS: BLOOD UREA NITROGEN 12 MG/DL (9-23); CALCIUM LEVEL 9.5 MG/DL (8.3-10.6); CARBON DIOXIDE LEVEL 30 MMOL/L (20-31); CHLORIDE LEVEL 102 MMOL/L (98-107); CREATININE FOR GFR 0.64 MG/DL (0.55-1.30); GLOMERULAR FILTRATION RATE > 60.0 (>39); GLUCOSE, FASTING 150 MG/DL (74-106); MAGNESIUM LEVEL 1.9 MG/DL (1.8-2.4); SODIUM LEVEL 142 MMOL/L (136-145)
[2024-03-03 08:04] LABS: PROCALCITONIN 0.45 ng/ml
[2024-03-03] MEDS: dilTIAZem 60 MG TAB PO SCH (08:20)
[2024-03-03] MEDS: FLECAINIDE 50MG TABLET PO SCH (08:20)
[2024-03-03] MEDS: ATORVASTATIN 10 MG TAB PO SCH (08:20)
[2024-03-03] MEDS: DOCUSATE SODIUM 100MG CAPSULE PO SCH (08:20)
[2024-03-03] MEDS: PANTOPRAZOLE 40MG VIAL IV SCH (08:21)
[2024-03-03] MEDS: ASCORBIC ACID 250 MG TAB PO SCH (10:53)
[2024-03-03] MEDS: IPRATROPIUM 0.5MG/ALBUTEROL 2.5MG INH SOL UD 3ML (DUONEB) NEB SCH (12:15)
[2024-03-03] MEDS: RIVAROXABAN 20MG TAB (XARELTO) PO SCH (19:02)
[2024-03-04] VITALS (25 sets, daily range): BP systolic 100–171; BP diastolic 59–78; TEMP 96.8–98.3; O2SAT 88–100
[2024-03-04 06:47] LABS: HEMATOCRIT 42.8 % (36.0-47.0); HEMOGLOBIN 13.4 g/dl (12.0-15.5); MEAN CORPUSCULAR HEMOGLOBIN 30.6 pg (27.0-33.0); MEAN CORPUSCULAR HGB CONC 31.3 g/dl (32.0-36.5); MEAN CORPUSCULAR VOLUME 97.7 fl (80.0-96.0); PLATELET COUNT, AUTOMATED 237 10^3/uL (150-450); RED BLOOD COUNT 4.38 10^6/uL (4.00-5.40); WHITE BLOOD COUNT 16.8 10^3/uL (4.0-10.0)
[2024-03-04 07:15] LABS: ALBUMIN 3.3 G/DL (3.2-5.2); ALKALINE PHOSPHATASE 73 U/L (35-104); ALT/SGPT 29 U/L (7.0-40); AST/SGOT 25 U/L (<34); BILIRUBIN,TOTAL 0.3 MG/DL (0.3-1.2); BLOOD UREA NITROGEN 15 MG/DL (9-23); CALCIUM LEVEL 10.4 MG/DL (8.3-10.6); CARBON DIOXIDE LEVEL 34 MMOL/L (20-31); CHLORIDE LEVEL 101 MMOL/L (98-107); CREATININE FOR GFR 0.62 MG/DL (0.55-1.30); GLOMERULAR FILTRATION RATE > 60.0 (>39); GLUCOSE, FASTING 125 MG/DL (74-106); POTASSIUM SERUM 4.1 MMOL/L (3.5-5.1); SODIUM LEVEL 143 MMOL/L (136-145); TOTAL PROTEIN 6.8 G/DL (5.7-8.2)
[2024-03-04] MEDS ORDERED: diphenhydrAMINE 50MG/ML VIAL IV PRN (08:15)
[2024-03-04] MEDS: cefTRIAXone SOD 1 GM in DEXTROSE 5% (D5W) ADV/MINI-BAG 50 ML IV SCH (12:36)
[2024-03-04] MEDS: methylPREDNISolone 125MG 2ML VIAL IV SCH (16:39)
[2024-03-05] VITALS (17 sets, daily range): BP systolic 130–178; BP diastolic 78–84; TEMP 97.3–98.1; O2SAT 87–97
[2024-03-05] MEDS: SODIUM CHLORIDE NASAL 0.65% SPRAY BTL (OCEAN) PRN (06:20)
[2024-03-05 08:00] LABS: HEMATOCRIT 44.3 % (36.0-47.0); HEMOGLOBIN 13.8 g/dl (12.0-15.5); MEAN CORPUSCULAR HEMOGLOBIN 30.2 pg (27.0-33.0); MEAN CORPUSCULAR HGB CONC 31.2 g/dl (32.0-36.5); MEAN CORPUSCULAR VOLUME 96.9 fl (80.0-96.0); PLATELET COUNT, AUTOMATED 268 10^3/uL (150-450); RED BLOOD COUNT 4.57 10^6/uL (4.00-5.40); WHITE BLOOD COUNT 17.1 10^3/uL (4.0-10.0)
[2024-03-05 08:17] LABS: ALBUMIN 3.5 G/DL (3.2-5.2); ALKALINE PHOSPHATASE 75 U/L (35-104); ALT/SGPT 34 U/L (7.0-40); AST/SGOT 31 U/L (<34); BILIRUBIN,TOTAL 0.3 MG/DL (0.3-1.2); BLOOD UREA NITROGEN 25 MG/DL (9-23); CALCIUM LEVEL 10.8 MG/DL (8.3-10.6); CARBON DIOXIDE LEVEL 32 MMOL/L (20-31); CHLORIDE LEVEL 97 MMOL/L (98-107); CREATININE FOR GFR 0.74 MG/DL (0.55-1.30); GLOMERULAR FILTRATION RATE > 60.0 (>39); GLUCOSE, FASTING 119 MG/DL (74-106); POTASSIUM SERUM 4.3 MMOL/L (3.5-5.1); SODIUM LEVEL 138 MMOL/L (136-145); TOTAL PROTEIN 7.2 G/DL (5.7-8.2)
[2024-03-05 16:25] LABS: PROCALCITONIN 0.27 ng/ml
[2024-03-06] VITALS (13 sets, daily range): BP systolic 160–178; BP diastolic 70–81; TEMP 97.5–99.2; O2SAT 89–99
[2024-03-06 08:03] LABS: HEMATOCRIT 44.1 % (36.0-47.0); HEMOGLOBIN 14.2 g/dl (12.0-15.5); MEAN CORPUSCULAR HEMOGLOBIN 31.1 pg (27.0-33.0); MEAN CORPUSCULAR HGB CONC 32.2 g/dl (32.0-36.5); MEAN CORPUSCULAR VOLUME 96.5 fl (80.0-96.0); PLATELET COUNT, AUTOMATED 283 10^3/uL (150-450); RED BLOOD COUNT 4.57 10^6/uL (4.00-5.40); WHITE BLOOD COUNT 14.3 10^3/uL (4.0-10.0)
[2024-03-06 08:33] LABS: ALBUMIN 3.7 G/DL (3.2-5.2); ALKALINE PHOSPHATASE 74 U/L (35-104); ALT/SGPT 39 U/L (7.0-40); AST/SGOT 38 U/L (<34); BILIRUBIN,TOTAL 0.3 MG/DL (0.3-1.2); BLOOD UREA NITROGEN 35 MG/DL (9-23); CALCIUM LEVEL 10.5 MG/DL (8.3-10.6); CARBON DIOXIDE LEVEL 33 MMOL/L (20-31); CHLORIDE LEVEL 95 MMOL/L (98-107); CREATININE FOR GFR 0.86 MG/DL (0.55-1.30); GLOMERULAR FILTRATION RATE > 60.0 (>39); GLUCOSE, FASTING 113 MG/DL (74-106); SODIUM LEVEL 137 MMOL/L (136-145); TOTAL PROTEIN 7.3 G/DL (5.7-8.2)
[2024-03-06] MEDS: ADVAIR HFA 115/21MCG INHALER INH SCH (11:56)
[2024-03-06] MEDS: TIOTROPIUM INHALER/CAPSULE (SPIRIVA) INH SCH (11:57)
[2024-03-06] MEDS: GLYCOPYRROLATE INJ 0.2 MG/ML 2 ML VIAL NEB SCH (19:10)
[2024-03-06] MEDS: LEVALBUTEROL 1.25MG 0.5ML CONCENTRATE NEB NEB PRN (23:38)
[2024-03-07] VITALS (24 sets, daily range): BP systolic 134–180; BP diastolic 60–84; TEMP 96–98.2; O2SAT 89–99
[2024-03-07 06:37] LABS: HEMATOCRIT 43.2 % (36.0-47.0); HEMOGLOBIN 13.8 g/dl (12.0-15.5); MEAN CORPUSCULAR HEMOGLOBIN 30.7 pg (27.0-33.0); MEAN CORPUSCULAR HGB CONC 31.9 g/dl (32.0-36.5); MEAN CORPUSCULAR VOLUME 96.2 fl (80.0-96.0); PLATELET COUNT, AUTOMATED 263 10^3/uL (150-450); RED BLOOD COUNT 4.49 10^6/uL (4.00-5.40); WHITE BLOOD COUNT 13.1 10^3/uL (4.0-10.0)
[2024-03-07 06:57] LABS: ALBUMIN 3.4 G/DL (3.2-5.2); ALKALINE PHOSPHATASE 66 U/L (35-104); ALT/SGPT 46 U/L (7.0-40); AST/SGOT 36 U/L (<34); BILIRUBIN,TOTAL 0.3 MG/DL (0.3-1.2); BLOOD UREA NITROGEN 41 MG/DL (9-23); CALCIUM LEVEL 10.8 MG/DL (8.3-10.6); CARBON DIOXIDE LEVEL 32 MMOL/L (20-31); CHLORIDE LEVEL 97 MMOL/L (98-107); CREATININE FOR GFR 0.85 MG/DL (0.55-1.30); GLOMERULAR FILTRATION RATE > 60.0 (>39); GLUCOSE, FASTING 138 MG/DL (74-106); SODIUM LEVEL 137 MMOL/L (136-145); TOTAL PROTEIN 6.9 G/DL (5.7-8.2)
[2024-03-07] MEDS: lisinopriL 5 MG TAB PO SCH (08:28)
[2024-03-07] MEDS: PANTOPRAZOLE 40MG TAB (PROTONIX) PO SCH (09:06)
[2024-03-08] VITALS (10 sets, daily range): BP systolic 122–182; BP diastolic 56–82; TEMP 96.7–98.7; O2SAT 82–97
[2024-03-08 04:19] LABS: HEMATOCRIT 43.2 % (36.0-47.0); HEMOGLOBIN 13.7 g/dl (12.0-15.5); MEAN CORPUSCULAR HEMOGLOBIN 30.2 pg (27.0-33.0); MEAN CORPUSCULAR HGB CONC 31.7 g/dl (32.0-36.5); MEAN CORPUSCULAR VOLUME 95.4 fl (80.0-96.0); PLATELET COUNT, AUTOMATED 261 10^3/uL (150-450); RED BLOOD COUNT 4.53 10^6/uL (4.00-5.40)
[2024-03-08 04:49] LABS: ALBUMIN 3.5 G/DL (3.2-5.2); BILIRUBIN,TOTAL 0.2 MG/DL (0.3-1.2); CALCIUM LEVEL 9.7 MG/DL (8.3-10.6); CREATININE FOR GFR 1.04 MG/DL (0.55-1.30); GLOMERULAR FILTRATION RATE 55.1 (>39); POTASSIUM SERUM 4.8 MMOL/L (3.5-5.1); TOTAL PROTEIN 6.5 G/DL (5.7-8.2)
[2024-03-08] MEDS: **hydrALAZINE** 10 MG TAB PO SCH (17:46)
[2024-03-09] VITALS (7 sets, daily range): BP systolic 118–156; BP diastolic 68–75; TEMP 97–98.3; O2SAT 91–99
[2024-03-09 07:28] LABS: HEMATOCRIT 43.3 % (36.0-47.0); HEMOGLOBIN 13.9 g/dl (12.0-15.5); MEAN CORPUSCULAR HGB CONC 32.1 g/dl (32.0-36.5); MEAN CORPUSCULAR VOLUME 96.7 fl (80.0-96.0); PLATELET COUNT, AUTOMATED 277 10^3/uL (150-450); RED BLOOD COUNT 4.48 10^6/uL (4.00-5.40); WHITE BLOOD COUNT 17.5 10^3/uL (4.0-10.0)
[2024-03-09 07:56] LABS: ALBUMIN 3.5 G/DL (3.2-5.2); BILIRUBIN,TOTAL 0.4 MG/DL (0.3-1.2); CALCIUM LEVEL 9.8 MG/DL (8.3-10.6); CREATININE FOR GFR 1.05 MG/DL (0.55-1.30); GLOMERULAR FILTRATION RATE 54.5 (>39); TOTAL PROTEIN 6.4 G/DL (5.7-8.2)
[2024-03-09 19:23] LABS: URINE STREP PNEUMONIAE ANTIGEN NOT DETECTED (NOT DETECT)
[2024-03-10] VITALS (13 sets, daily range): BP systolic 134–176; BP diastolic 60–78; TEMP 97.5–99.1; O2SAT 85–97
[2024-03-10 06:45] LABS: HEMATOCRIT 43.2 % (36.0-47.0); HEMOGLOBIN 13.9 g/dl (12.0-15.5); MEAN CORPUSCULAR HEMOGLOBIN 30.8 pg (27.0-33.0); MEAN CORPUSCULAR HGB CONC 32.2 g/dl (32.0-36.5); MEAN CORPUSCULAR VOLUME 95.8 fl (80.0-96.0); PLATELET COUNT, AUTOMATED 278 10^3/uL (150-450); RED BLOOD COUNT 4.51 10^6/uL (4.00-5.40); WHITE BLOOD COUNT 16.7 10^3/uL (4.0-10.0)
[2024-03-10 07:06] LABS: ALBUMIN 3.4 G/DL (3.2-5.2); ALKALINE PHOSPHATASE 57 U/L (35-104); ALT/SGPT 44 U/L (7.0-40); AST/SGOT 26 U/L (<34); BILIRUBIN,TOTAL 0.4 MG/DL (0.3-1.2); BLOOD UREA NITROGEN 42 MG/DL (9-23); CALCIUM LEVEL 9.7 MG/DL (8.3-10.6); CARBON DIOXIDE LEVEL 35 MMOL/L (20-31); CHLORIDE LEVEL 96 MMOL/L (98-107); CREATININE FOR GFR 0.86 MG/DL (0.55-1.30); GLOMERULAR FILTRATION RATE > 60.0 (>39); GLUCOSE, FASTING 123 MG/DL (74-106); POTASSIUM SERUM 5.3 MMOL/L (3.5-5.1); SODIUM LEVEL 135 MMOL/L (136-145); TOTAL PROTEIN 6.2 G/DL (5.7-8.2)
[2024-03-10] MEDS: PATIROMER SORBITEX CALCIUM 8.4 GM POWDER PACKET (VELTASSA) PO ONE (18:46)
[2024-03-11 04:15] VITALS: BP 154/68; TEMP 98.2; O2SAT 90
[2024-03-11 06:26] LABS: BASO # 0.1 10^3/uL (0.0-0.2); BASO % 0.3 % (0.0-1.0); EOS % 0.1 % (0.0-3.0); HEMATOCRIT 43.4 % (36.0-47.0); LYMPH # 0.6 10^3/uL (1.5-5.0); LYMPH % 3.5 % (24.0-44.0); MEAN CORPUSCULAR HEMOGLOBIN 30.3 pg (27.0-33.0); MEAN CORPUSCULAR HGB CONC 32.3 g/dl (32.0-36.5); MEAN CORPUSCULAR VOLUME 93.9 fl (80.0-96.0); MONO # 0.7 10^3/uL (0.0-0.8); MONO % 3.7 % (2.0-8.0); NEUTROPHILS # 16.4 10^3/uL (1.5-8.5); NEUTROPHILS % 90.4 % (36.0-66.0); PLATELET COUNT, AUTOMATED 274 10^3/uL (150-450); RED BLOOD COUNT 4.62 10^6/uL (4.00-5.40); WHITE BLOOD COUNT 18.1 10^3/uL (4.0-10.0)
[2024-03-11 06:51] LABS: ALBUMIN 3.2 G/DL (3.2-5.2); ALKALINE PHOSPHATASE 58 U/L (35-104); ALT/SGPT 50 U/L (7.0-40); AST/SGOT 29 U/L (<34); BILIRUBIN,TOTAL 0.4 MG/DL (0.3-1.2); BLOOD UREA NITROGEN 34 MG/DL (9-23); CALCIUM LEVEL 10.5 MG/DL (8.3-10.6); CARBON DIOXIDE LEVEL 33 MMOL/L (20-31); CHLORIDE LEVEL 95 MMOL/L (98-107); CREATININE FOR GFR 0.73 MG/DL (0.55-1.30); GLOMERULAR FILTRATION RATE > 60.0 (>39); GLUCOSE, FASTING 113 MG/DL (74-106); POTASSIUM SERUM 4.7 MMOL/L (3.5-5.1); SODIUM LEVEL 134 MMOL/L (136-145); TOTAL PROTEIN 6.3 G/DL (5.7-8.2)
[2024-03-11 07:37] VITALS: O2SAT 93
[2024-03-11] MEDS: LR 1,000 ML IV ONE (08:00)
[2024-03-11] MEDS ORDERED: INHA1SPA39 MC (08:13)
[2024-03-11] MEDS ORDERED: HYDR-161 PO (08:16)
[2024-03-11 08:31] VITALS: BP 157/97
[2024-03-11] MEDS: predniSONE 20 MG TAB PO SCH (08:32)
== END 2024-03-11 11:35 | DRG 190 ==
LOC: M ED 20:53 → EDBD 20:53 → M ED INP 03-03 01:18 → M PCU 03-03 05:30 → M MSPAV 03-10 18:29
PROVIDERS: ADMIT Student in an Organized Health Care Education/Training Program; ATTEND Student in an Organized Health Care Education/Training Program
DX: J44.0 Chronic obstructive pulmonary disease with (acute) lower respiratory infection (principal); J15.9 Unspecified bacterial pneumonia; J44.1 Chronic obstructive pulmonary disease with (acute) exacerbation; I10 Essential (primary) hypertension; I48.91 Unspecified atrial fibrillation; E87.5 Hyperkalemia; E83.52 Hypercalcemia; E78.5 Hyperlipidemia, unspecified; G47.33 Obstructive sleep apnea (adult) (pediatric); K21.9 Gastro-esophageal reflux disease without esophagitis; G25.0 Essential tremor; B97.81 Human metapneumovirus as the cause of diseases classified elsewhere; Z85.038 Personal history of other malignant neoplasm of large intestine; Z90.49 Acquired absence of other specified parts of digestive tract; Z90.79 Acquired absence of other genital organ(s); Z87.891 Personal history of nicotine dependence; Z79.01 Long term (current) use of anticoagulants; Z79.899 Other long term (current) drug therapy; Z88.0 Allergy status to penicillin; Z88.1 Allergy status to other antibiotic agents; Z88.2 Allergy status to sulfonamides; Z88.8 Allergy status to other drugs, medicaments and biological substances; Z66 Do not resuscitate

== ENCOUNTER → 2024-03-16 | Outpatient (REF) ==
[~2024-03-16] MED LIST changes: +ALBU8.5H INH; +HYDR-161 PO; +INHA1SPA39 MC; +THERTAB52 PO
[2024-03-16 11:58] LABS: HEMATOCRIT 42.5 % (36.0-47.0); MEAN CORPUSCULAR HEMOGLOBIN 29.7 pg (27.0-33.0); MEAN CORPUSCULAR HGB CONC 30.6 g/dl (32.0-36.5); MEAN CORPUSCULAR VOLUME 97.3 fl (80.0-96.0); PLATELET COUNT, AUTOMATED 216 10^3/uL (150-450); RED BLOOD COUNT 4.37 10^6/uL (4.00-5.40); WHITE BLOOD COUNT 18.9 10^3/uL (4.0-10.0)
[2024-03-16 12:35] LABS: BLOOD UREA NITROGEN 20 MG/DL (9-23); CALCIUM LEVEL 8.8 MG/DL (8.3-10.6); CARBON DIOXIDE LEVEL 38 MMOL/L (20-31); CHLORIDE LEVEL 95 MMOL/L (98-107); CREATININE FOR GFR 0.67 MG/DL (0.55-1.30); GLOMERULAR FILTRATION RATE > 60.0 (>39); GLUCOSE, FASTING 84 MG/DL (74-106); POTASSIUM SERUM 3.1 MMOL/L (3.5-5.1); SODIUM LEVEL 140 MMOL/L (136-145)
== END ==
PROVIDERS: ATTEND Physician Assistant
DX: I10 Essential (primary) hypertension (principal)

== ENCOUNTER → 2024-03-23 | Outpatient (REF) ==
[2024-03-23 10:47] LABS: HEMATOCRIT 39.7 % (36.0-47.0); MEAN CORPUSCULAR HEMOGLOBIN 30.5 pg (27.0-33.0); MEAN CORPUSCULAR HGB CONC 30.2 g/dl (32.0-36.5); MEAN CORPUSCULAR VOLUME 100.8 fl (80.0-96.0); PLATELET COUNT, AUTOMATED 185 10^3/uL (150-450); RED BLOOD COUNT 3.94 10^6/uL (4.00-5.40); WHITE BLOOD COUNT 13.5 10^3/uL (4.0-10.0)
[2024-03-23 11:20] LABS: BLOOD UREA NITROGEN 14 MG/DL (9-23); CALCIUM LEVEL 8.7 MG/DL (8.3-10.6); CARBON DIOXIDE LEVEL 35 MMOL/L (20-31); CHLORIDE LEVEL 98 MMOL/L (98-107); GLOMERULAR FILTRATION RATE > 60.0 (>39); GLUCOSE, FASTING 114 MG/DL (74-106); POTASSIUM SERUM 3.7 MMOL/L (3.5-5.1); SODIUM LEVEL 142 MMOL/L (136-145)
== END ==
PROVIDERS: ATTEND Physician Assistant
DX: I10 Essential (primary) hypertension (principal)

== ENCOUNTER → 2024-04-03 | Outpatient (REF) ==
[2024-04-03 08:17] LABS: HEMATOCRIT 35.1 % (36.0-47.0); HEMOGLOBIN 10.5 g/dl (12.0-15.5); MEAN CORPUSCULAR HEMOGLOBIN 30.3 pg (27.0-33.0); MEAN CORPUSCULAR HGB CONC 29.9 g/dl (32.0-36.5); MEAN CORPUSCULAR VOLUME 101.2 fl (80.0-96.0); PLATELET COUNT, AUTOMATED 286 10^3/uL (150-450); RED BLOOD COUNT 3.47 10^6/uL (4.00-5.40); WHITE BLOOD COUNT 6.3 10^3/uL (4.0-10.0)
[2024-04-03 08:38] LABS: BLOOD UREA NITROGEN 13 MG/DL (9-23); CALCIUM LEVEL 9.2 MG/DL (8.3-10.6); CARBON DIOXIDE LEVEL 34 MMOL/L (20-31); CHLORIDE LEVEL 102 MMOL/L (98-107); CREATININE FOR GFR 0.71 MG/DL (0.55-1.30); GLOMERULAR FILTRATION RATE > 60.0 (>39); GLUCOSE, FASTING 88 MG/DL (74-106); SODIUM LEVEL 143 MMOL/L (136-145)
== END ==
PROVIDERS: ATTEND Physician Assistant
DX: D64.9 Anemia, unspecified (principal)

== ENCOUNTER → 2024-04-08 | Outpatient (REF) ==
[2024-04-08 08:35] LABS: HEMOGLOBIN 11.5 g/dl (12.0-15.5); MEAN CORPUSCULAR HEMOGLOBIN 31.1 pg (27.0-33.0); MEAN CORPUSCULAR HGB CONC 30.3 g/dl (32.0-36.5); MEAN CORPUSCULAR VOLUME 102.7 fl (80.0-96.0); PLATELET COUNT, AUTOMATED 282 10^3/uL (150-450); WHITE BLOOD COUNT 10.3 10^3/uL (4.0-10.0)
[2024-04-08 09:06] LABS: BLOOD UREA NITROGEN 12 MG/DL (9-23); CALCIUM LEVEL 9.3 MG/DL (8.3-10.6); CARBON DIOXIDE LEVEL 34 MMOL/L (20-31); CHLORIDE LEVEL 101 MMOL/L (98-107); CREATININE FOR GFR 0.71 MG/DL (0.55-1.30); GLOMERULAR FILTRATION RATE > 60.0 (>39); GLUCOSE, FASTING 88 MG/DL (74-106); POTASSIUM SERUM 4.2 MMOL/L (3.5-5.1); SODIUM LEVEL 143 MMOL/L (136-145)
== END ==
PROVIDERS: ATTEND Physician Assistant
DX: I10 Essential (primary) hypertension (principal)

== ENCOUNTER → 2024-06-22 | Outpatient (REF) | payer MEDICARE, OTHER ==
[2024-06-22 15:26] LABS: LYMPHOCYTES 2 % (16-44); MONOCYTES 4 % (0-5); NEUTROPHILS 92 % (28-66); PLATELET ESTIMATE NORMAL (NORMAL)
== END ==
LOC: M LAB REF 14:13
PROVIDERS: ATTEND Family Medicine
DX: D64.9 Anemia, unspecified (principal); Z85.828 Personal history of other malignant neoplasm of skin

== ENCOUNTER → 2024-06-23 | Outpatient (CLI) | payer MEDICARE, OTHER | LOC: M PLAIMG 10:49 | PROVIDERS: ATTEND Internal Medicine Pulmonary Disease | DX: R91.8 Other nonspecific abnormal finding of lung field (principal) ==

== ENCOUNTER → 2024-10-27 | Outpatient (CLI) | payer MEDICARE, OTHER | LOC: M PLAIMG 13:32 | PROVIDERS: ATTEND Internal Medicine Pulmonary Disease | DX: R91.8 Other nonspecific abnormal finding of lung field (principal) ==